=== PATIENT | female | born 1970 | race Caucasian/White ===

== ENCOUNTER → 2016-09-25 | Outpatient (CLI) | payer BC | LOC: MW.CHFP 09:57 | PROVIDERS: ATTEND Physician Assistant | DX: R30.0 Dysuria (principal); N39.0 Urinary tract infection, site not specified | CPT/HCPCS: 81001; 87086; 87088; 87186 ==

== ENCOUNTER → 2016-10-26 | Outpatient (CLI) | payer BC | LOC: MW.CHFP 15:01 | PROVIDERS: ATTEND Physician Assistant | DX: R30.0 Dysuria (principal) | CPT/HCPCS: 81001 ==

== ENCOUNTER 2017-02-27 15:07 | Emergency (ER) | payer BC ==
--- NOTE | 2017-02-27 15:29 | EDM.PDOC ---
ED HPI GENERAL MEDICAL PROBLEM - General Chief Complaint: Lower Extremity Injury/Pain Stated Complaint: RIGHT KNEE PAIN Time Seen by Provider: 02/27/17 15:29 Source of Information: Reports: Patient - History of Present Illness INITIAL COMMENTS - FREE TEXT/NARRATIVE: HISTORY AND PHYSICAL: History of present illness: []Patient has left knee pain 5 out of 10 worsen with weightbearing and climbing stairs better at rest pain is nonradiating no redness warmth or swelling noted no ballooning of the patella, full range of motion strength 5 out of 5 entire limb neurovascularly intact, patient does have medial joint line tenderness and sensation that joint is trying to walk however it does not lock in place, she does not relate any injury or trauma to the knee She denies any injury or trauma, no fever nausea vomiting chills sweats Review of systems: As per history of present illness and below otherwise all systems reviewed and negative. Past medical history: As per history of present illness and as reviewed below otherwise noncontributory. Surgical history: As per history of present illness and as reviewed below otherwise noncontributory. Social history: No reported history of drug or alcohol abuse. Family history: As per history of present illness and as reviewed below otherwise noncontributory. Physical exam: HEENT: Atraumatic, normocephalic, pupils reactive, negative for conjunctival pallor or scleral icterus, mucous membranes moist, throat clear, neck supple, nontender, trachea midline. Lungs: Clear to auscultation, breath sounds equal bilaterally, chest nontender. Heart: S1S2, regular, negative for clicks, rubs, or JVD. Abdomen: Soft, nondistended, nontender. Negative for masses or hepatosplenomegaly. Negative for costovertebral tenderness. Pelvis: Stable nontender. 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: Deferred. Rectal: Deferred. Extremities: Atraumatic, negative for cords or calf pain. Neurovascular unremarkable. Neuro: Awake, alert, oriented. Cranial nerves II through XII unremarkable. Cerebellum unremarkable. Motor and sensory unremarkable throughout. Exam nonfocal. Left knee as per history of present illness Diagnostics: []Left knee 3 views CBC CRP uric acid Therapeutics: []Rest ice ibuprofen Patient offered crutches Follow-up with orthopedist Impression: []Left knee pain Possibly anterior patellar pain syndrome however the patient does have medial joint line tenderness and locking sensation hence meniscus injury cannot be ruled out Definitive disposition and diagnosis as appropriate pending reevaluation and review of above. left knee Pain Score (Numeric/FACES): 6 - Related Data Allergies Allergy/AdvReac Type Severity Reaction Status Date / Time No Known Allergies Allergy Verified 02/27/17 15:20 Home Meds: Home Meds metFORMIN [Glucophage XR] 500 mg PO DAILY 06/11/14 [History] Albuterol [Ventolin HFA] 1 puff INH Q4H PRN 11/17/14 [History] Fluticasone/Salmeterol [Advair 100-50] 1 puff IH Q12H PRN 11/17/14 [History] Gabapentin [Neurontin] 300 mg PO BEDTIME 11/17/14 [History] lamoTRIgine [Lamotrigine] 200 mg PO DAILY 11/17/14 [History] Lisinopril/Hydrochlorothiazide [Lisinopril-Hctz 10-12.5 mg Tab] 1 tab PO DAILY 07/29/16 [History] atorvaSTATin [Lipitor] 1 tab PO DAILY 07/29/16 [History] Past Medical History HEENT History: Reports: None Cardiovascular History: Reports: Hypertension Other Cardiovascular History: REports stress test in about October of this year after being hospitalized Respiratory History: Reports: Asthma Gastrointestinal History: Reports: GERD Other Gastrointestinal History: Heartburn/GERD Other 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 History: Urinary urgency Other Musculoskeletal History: Chronic low back pain, hx: fracture Left foot Other Neuro History: Headaches, hx: Vertigo 'no problem currently' Psychiatric History: Reports: Anxiety Endocrine/Metabolic History: Reports: Diabetes, Type II Other Endocrine/Metabolic History: Hypothyroidism - Infectious Disease History Infectious Disease History: Reports: Chicken Pox - Past Surgical History HEENT Surgical History: Reports: Oral Surgery Female Surgical History: Reports: Hysterectomy, Other (See Below) Social & Family History - Family History Cardiac: Reports: CAD, High Cholesterol, ID Neurological: Reports: CVA - Tobacco Use Smoking Status *Q: Never Smoker Second Hand Smoke Exposure: No - Caffeine Use Caffeine Use: Reports: None - Alcohol Use Days Per Week of Alcohol Use: 0 - Recreational Drug Use Recreational Drug Use: No Drug Use in Last 12 Months: No Review of Systems - Review of Systems Review Of Systems: ROS reveals no pertinent complaints other than HPI. ED EXAM, GENERAL - Physical Exam Exam: See Below Course - Vital Signs Last Recorded V/S: Last Vital Signs Temp 36.4 C 02/27/17 15:20 Pulse 89 02/27/17 15:20 Resp 16 02/27/17 15:20 BP 138/71 02/27/17 15:20 Pulse Ox 95 02/27/17 15:20 - Orders/Labs/Meds Labs: Laboratory Tests 02/27/17 02/27/17 Range/Units 15:53 15:53 WBC 6.44 (4.0-11.0) K/uL RBC 4.81 (4.30-5.90) M/uL Hgb 14.2 (12.0-16.0) g/dL Hct 42.1 (36.0-46.0) % MCV 87.5 (80.0-98.0) fL MCH 29.5 (27.0-32.0) pg MCHC 33.7 (31.0-37.0) g/dL RDW Std Deviation 43.3 (28.0-62.0) fl RDW Coeff of Mamta 14 (11.0-15.0) % Plt Count 273 (150-400) K/uL MPV 9.70 (7.40-12.00) fL Neut % (Auto) 55.0 (48.0-80.0) % Lymph % (Auto) 37.4 (16.0-40.0) % Hood % (Auto) 6.2 (0.0-15.0) % Eos % (Auto) 1.1 (0.0-7.0) % Baso % (Auto) 0.3 (0.0-1.5) % Neut # (Auto) 3.5 (1.4-5.7) K/uL Lymph # (Auto) 2.4 (0.6-2.4) K/uL Hood # (Auto) 0.4 (0.0-0.8) K/uL Eos # (Auto) 0.1 (0.0-0.7) K/uL Baso # (Auto) 0.0 (0.0-0.1) K/uL Nucleated RBC % 0.0 /100WBC Nucleated RBCs # 0 K/uL Uric Acid 5.2 (2.1-6.2) mg/dL C-Reactive Protein 0.11 (0.0-0.5) mg/dL Departure - Departure Time of Disposition: 16:50 Disposition: Home, Self-Care 01 Preliminary Cause of *Q: Sepsis & Multi System Organ Failure Condition: Good Clinical Impression: Left knee pain - Discharge Information Referrals: Nitesh Ward MD [Primary Care Provider] - Forms: ED Department Discharge Additional Instructions: Rest Ice 20 minute intervals 3 times daily Ibuprofen 400 mg 3 times daily 7-10 days Follow-up with orthopedist in 2 weeks for recheck, call number below to gain appointment [facility] [address], [address] [place] [address] my orthopedic The following information is given to patients seen in the emergency department who are being discharged to home. This information is to outline your options for follow-up care. We provide all patients seen in our emergency department with a follow-up referral. The need for follow-up, as well as the timing and circumstances, are variable depending upon the specifics of your emergency department visit. If you don't have a primary care physician on staff, we will provide you with a referral. We always advise you to contact your personal physician following an emergency department visit to inform them of the circumstance of the visit and for follow-up with them and/or the need for any referrals to a consulting specialist. The emergency department will also refer you to a specialist when appropriate. This referral assures that you have the opportunity for follow-up care with a specialist. All of these measure are taken in an effort to provide you with optimal care, which includes your follow-up. Under all circumstances we always encourage you to contact your private physician who remains a resource for coordinating your care. When calling for follow-up care, please make the office aware that this follow-up is from your recent emergency room visit. If for any reason you are refused follow-up, please contact the [facility] emergency department at and asked to speak to the emergency department charge nurse.
--- NOTE | 2017-02-27 16:37 | CR ---
EXAMINATION: Left knee HISTORY: Pain COMPARISON: MRI dated 04/05/2015. TECHNIQUE: 3 views FINDINGS/IMPRESSION: There is a trace suprapatellar joint effusion. There is no fracture or acute oss eous abnormality identified. Bone mineralization and joint spaces are otherwise preserved.
[2017-02-27 17:18] VITALS: BP 121/67
== END 2017-02-27 17:16 | disposition home or self-care (01) ==
LOC: MW.ED 15:07
DX: M25.562 Pain in left knee (principal); I10 Essential (primary) hypertension; J45.909 Unspecified asthma, uncomplicated; K21.9 Gastro-esophageal reflux disease without esophagitis; E11.9 Type 2 diabetes mellitus without complications; F41.9 Anxiety disorder, unspecified; E03.9 Hypothyroidism, unspecified; Z79.84 Long term (current) use of oral hypoglycemic drugs; Z79.899 Other long term (current) drug therapy; Z90.710 Acquired absence of both cervix and uterus; Z98.818 Other dental procedure status
CPT/HCPCS: 36415; 73562-26-LT; 73562-LT; 84550; 85025; 86140; 99282; 99283

== ENCOUNTER 2017-05-24 18:33 | Emergency (ER) | payer BC ==
--- NOTE | 2017-05-24 19:20 | EDM.PDOC ---
ED HPI GENERAL MEDICAL PROBLEM - General Chief Complaint: Upper Extremity Injury/Pain Stated Complaint: PT HURT LT SHOULDER Time Seen by Provider: 05/24/17 19:17 - History of Present Illness INITIAL COMMENTS - FREE TEXT/NARRATIVE: HISTORY AND PHYSICAL: History of present illness: Patient's 47-year-old female presents with left shoulder pain from fall 2 weeks prior she denies other trauma or concern Review of systems: As per history of present illness and below otherwise all systems reviewed and negative. Past medical history: As per history of present illness and as reviewed below otherwise noncontributory. Surgical history: As per history of present illness and as reviewed below otherwise noncontributory. Social history: No reported history of drug or alcohol abuse. Family history: As per history of present illness and as reviewed below otherwise noncontributory. Physical exam: HEENT: Atraumatic, normocephalic, pupils reactive, negative for conjunctival pallor or scleral icterus, mucous membranes moist, throat clear, neck supple, nontender, trachea midline. Lungs: Clear to auscultation, breath sounds equal bilaterally, chest nontender. Heart: S1S2, regular, negative for clicks, rubs, or JVD. Abdomen: Soft, nondistended, nontender. Negative for masses or hepatosplenomegaly. Negative for costovertebral tenderness. Pelvis: Stable nontender. 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: Deferred. Rectal: Deferred. Extremities: Limited range of motion to her left shoulder secondary to pain no gross deformity no crepitation or point tenderness CMS neurovascular exams unremarkable. Neuro: Awake, alert, oriented. Cranial nerves II through XII unremarkable. Cerebellum unremarkable. Motor and sensory unremarkable throughout. Exam nonfocal. Diagnostics: X-ray left shoulder Therapeutics: Left shoulder sling Impression: #1 left shoulder injury Definitive disposition and diagnosis as appropriate pending reevaluation and review of above. Left Shoulder Pain Score (Numeric/FACES): 8 - Related Data Allergies Allergy/AdvReac Type Severity Reaction Status Date / Time No Known Allergies Allergy Verified 05/24/17 19:09 Home Meds: Home Meds metFORMIN [Glucophage XR] 3 tab PO DAILY 06/11/14 [History] Gabapentin [Neurontin] 300 mg PO BID 11/17/14 [History] lamoTRIgine [Lamotrigine] 200 mg PO DAILY 11/17/14 [History] Lisinopril/Hydrochlorothiazide [Lisinopril-Hctz 10-12.5 mg Tab] 1 tab PO DAILY 07/29/16 [History] Albuterol Sulfate [Proair Hfa] 1 - 2 puff INH ASDIRECTED PRN 05/24/17 [History] Aspirin [[place] Aspirin] 81 mg PO DAILY 05/24/17 [History] Omeprazole 20 mg PO DAILY 05/24/17 [History] Venlafaxine HCl [Venlafaxine HCl ER] 75 mg PO DAILY 05/24/17 [History] Past Medical History HEENT History: Reports: None Cardiovascular History: Reports: Hypertension Other Cardiovascular History: REports stress test in about October of this year after being hospitalized Respiratory History: Reports: Asthma Gastrointestinal History: Reports: GERD Other Gastrointestinal History: Heartburn/GERD Other 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 History: Urinary urgency Other Musculoskeletal History: Chronic low back pain, hx: fracture Left foot Other Neuro History: Headaches, hx: Vertigo 'no problem currently' Psychiatric History: Reports: Anxiety Endocrine/Metabolic History: Reports: Diabetes, Type II Other Endocrine/Metabolic History: Hypothyroidism - Infectious Disease History Infectious Disease History: Reports: Chicken Pox - Past Surgical History Head Surgeries/Procedures: Reports: None HEENT Surgical History: Reports: Oral Surgery Female Surgical History: Reports: Hysterectomy, Other (See Below) Social & Family History - Family History Family Medical History: Noncontributory Cardiac: Reports: CAD, High Cholesterol, [place] Neurological: Reports: CVA - Tobacco Use Smoking Status *Q: Never Smoker Second Hand Smoke Exposure: No - Caffeine Use Caffeine Use: Reports: Soda - Alcohol Use Days Per Week of Alcohol Use: 0 - Recreational Drug Use Recreational Drug Use: No Drug Use in Last 12 Months: No Review of Systems - Review of Systems Review Of Systems: ROS reveals no pertinent complaints other than HPI. ED EXAM, GENERAL - Physical Exam Exam: See Below (See dictated) Course - Vital Signs Last Recorded V/S: Last Vital Signs Temp 36.4 C 05/24/17 19:08 Pulse 86 05/24/17 19:08 Resp 18 05/24/17 19:08 BP 129/75 05/24/17 19:08 Pulse Ox 95 05/24/17 19:08 - Orders/Labs/Meds Orders: Active Orders 24 hr Category Date Time Status Shoulder Comp Lt [CR] Stat Exams 05/24/17 19:18 Ordered Departure - Departure Time of Disposition: 19:20 Disposition: Home, Self-Care 01 Condition: Good Clinical Impression: Shoulder injury - Discharge Information Referrals: PCP,None [Primary Care Provider] - Additional Instructions: The following information is given to patients seen in the emergency department who are being discharged to home. This information is to outline your options for follow-up care. We provide all patients seen in our emergency department with a follow-up referral. The need for follow-up, as well as the timing and circumstances, are variable depending upon the specifics of your emergency department visit. If you don't have a primary care physician on staff, we will provide you with a referral. We always advise you to contact your personal physician following an emergency department visit to inform them of the circumstance of the visit and for follow-up with them and/or the need for any referrals to a consulting specialist. The emergency department will also refer you to a specialist when appropriate. This referral assures that you have the opportunity for followup care with a specialist. All of these measure are taken in an effort to provide you with optimal care, which includes your followup. Under all circumstances we always encourage you to contact your private physician who remains a resource for coordinating your care. When calling for followup care, please make the office aware that this follow-up is from your recent emergency room visit. If for any reason you are refused follow-up, please contact the [facility] emergency department at and asked to speak to the emergency department charge nurse. [facility] - Orthopedic Clinic [address], [address] [place] [address] Sling as directed Ultram as prescribed called schedule routine appointment with primary medical doctor in orthopedic clinic above as needed as discussed - My Orders Last 24 Hours: My Active Orders 05/24/17 19:18 Shoulder Comp Lt [CR] Stat - Assessment/Plan Last 24 Hours: My Active Orders 05/24/17 19:18 Shoulder Comp Lt [CR] Stat
[2017-05-24 23:38] VITALS: BP 131/73
--- NOTE | 2017-05-26 06:16 | CR ---
EXAM DATE: 05/24/17 PATIENT'S AGE: 47 Patient: DERIK JAIME Facility: [place], [place] Site . Site : 1970 Study: XRay Shoulder Left [id number]/[id number] 7:36:30 PM Ordering Physician: Annalisa Banuelos Final Report: INDICATION: Shoulder pain, fell 2 weeks ago TECHNIQUE: Shoulder radiograph 3 views left COMPARISON: 05/13/2017 FINDINGS: Bones: Alignment is normal. No acute fractures or aggressive bone lesions identified. Joint spaces: The glenohumeral joint is unremarkable in appearance. The acromioclavicular joint is unremarkable. No radiographic evidence of a shoulder effusion is seen. Soft tissues: The visualized hemithorax is unremarkable. No radiopaque foreign bodies are seen. IMPRESSION: 1. No acute osseous injuries are noted. Dictated by: Maulik Peraza MD @ 05/24/2017 19:39:24 (Electronic Signature) Report Signed by Proxy. BENITO
== END 2017-05-24 20:06 | disposition home or self-care (01) ==
LOC: MW.ED 18:33
DX: S49.92XA Unspecified injury of left shoulder and upper arm, initial encounter (principal); I10 Essential (primary) hypertension; J45.909 Unspecified asthma, uncomplicated; K21.9 Gastro-esophageal reflux disease without esophagitis; E11.9 Type 2 diabetes mellitus without complications; E03.9 Hypothyroidism, unspecified; Z79.84 Long term (current) use of oral hypoglycemic drugs; Z79.82 Long term (current) use of aspirin; Z79.899 Other long term (current) drug therapy; W19.XXXA Unspecified fall, initial encounter
CPT/HCPCS: 73030; 99283; A4566

== ENCOUNTER 2017-05-29 09:04 | Day surgery (SDC) | payer BC ==
[~2017-05-29 09:04] MED LIST: Acetaminophen/HYDROcodone 325-5 MG Tab PO PRN; Lactated Ringers 1,000 ML IV SCH; Lidocaine 1% 20 ML MDV ONE; Lidocaine 2% 5 ML SDV ONE; Midazolam 1 MG/ML 2 ML SDV ONE; Ondansetron 4 MG/2 ML SDV ONE; Propofol 200 MG/20 ML SDV ONE; ceFAZolin 2 GM in Premix Bag 1 BAG IV SCH; fentaNYL 250 MCG/5 ML SDV ONE
--- NOTE | 2017-05-29 10:01 | PCM.PREANE ---
Preanesthetic Assessment - Anesthesia/Transfusion/Family Hx Anesthesia History: Prior Anesthesia Without Reaction Other Type of Anesthesia Reaction Comment: was told she had low SaO2 after surgery Family History of Anesthesia Reaction: No Transfusion History: No Prior Transfusion(s) - Review of Systems General: No Symptoms Pulmonary: No Symptoms Cardiovascular: No Symptoms Gastrointestinal: No Symptoms Neurological: No Symptoms Other: Reports: Sinus Problem - Physical Assessment NPO Status Date: 05/28/17 NPO Status Time: 21:00 O2 Sat by Pulse Oximetry: 96 Respiratory Rate: 14 Vital Signs: Last Vital Signs Temp 36.9 C 05/29/17 09:30 Pulse 86 05/29/17 09:30 Resp 14 05/29/17 09:30 BP 131/73 05/29/17 09:30 Pulse Ox 96 05/29/17 09:30 Height: 1.75 m Weight: 112.945 kg ASA Class: 2 Mental Status: Alert & Oriented x3 Airway Class: Mallampati = 2 Dentition: Reports: Normal Dentition Lungs: Clear to Auscultation, Normal Respiratory Effort - Allergies Allergies/Adverse Reactions: Allergies Allergy/AdvReac Type Severity Reaction Status Date / Time No Known Allergies Allergy Verified 05/24/17 19:09 - Anesthesia Plan Pre-Op Medication Ordered: None - Acknowledgements Anesthesia Type Planned: General Anesthesia Pt an Appropriate Candidate for the Planned Anesthesia: Yes Alternatives and Risks of Anesthesia Discussed w Pt/Guardian: Yes Pt/Guardian Understands and Agrees with Anesthesia Plan: Yes Additional Comments: PMH: MO, anx/dep, Asthma, DM2, GERD, HTN (on clonadine), thyroid replacement. PreAnesthesia Questionnaire HEENT History: Reports: None Other HEENT History: wears glasses Cardiovascular History: Reports: Hypertension Other Cardiovascular History: REports stress test in about October of this year after being hospitalized Respiratory History: Reports: Asthma Gastrointestinal History: Reports: GERD Other Gastrointestinal History: uses OTC treatment Other 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 History: Urinary urgency Musculoskeletal History: Reports: Back Pain, Chronic Other Musculoskeletal History: Chronic low back pain, hx: fracture Left foot Neurological History: Reports: Concussion, Vertigo Other Neuro History: Headaches, hx: Vertigo 'no problem currently' Psychiatric History: Reports: Anxiety, Depression Endocrine/Metabolic History: Reports: Diabetes, Type II, Obesity/BMI 30+ Other Endocrine/Metabolic History: Hypothyroidism - Infectious Disease History Infectious Disease History: Reports: Chicken Pox - Past Surgical History HEENT Surgical History: Reports: None Female Surgical History: Reports: Hysterectomy, Salpingo-Oophorectomy, Tubal Ligation Other Female Surgeries/Procedures: hx of bladder surgery - SUBSTANCE USE Smoking Status *Q: Never Smoker Second Hand Smoke Exposure: No Days Per Week of Alcohol Use: 0 Recreational Drug Use History: No - HOME MEDS Home Medications: Home Meds metFORMIN [Glucophage XR] 3 tab PO DAILY 06/11/14 [History] Gabapentin [Neurontin] 300 mg PO BID 11/17/14 [History] lamoTRIgine [Lamotrigine] 200 mg PO DAILY 11/17/14 [History] Lisinopril/Hydrochlorothiazide [Lisinopril-Hctz 10-12.5 mg Tab] 1 tab PO DAILY 07/29/16 [History] Albuterol Sulfate [Proair Hfa] 1 - 2 puff INH ASDIRECTED PRN 05/24/17 [History] Aspirin [[place] Aspirin] 81 mg PO DAILY 05/24/17 [History] Venlafaxine HCl [Venlafaxine HCl ER] 75 mg PO DAILY 05/24/17 [History] - CURRENT (IN HOUSE) MEDS Current Meds: Current Medications Hydrocodone Bitart/Acetaminophen ([place] 325-5 Mg) 1 - 2 tab PO Q4H PRN PRN Reason: Pain Cefazolin Sodium/Dextrose 2 gm (/ Premix) 50 mls @ 100 mls/hr IV ONCALL MAYURI Lactated Ringer's (Ringers, Lactated) 1,000 mls @ 100 mls/hr IV ASDIRECTED MAYURI Discontinued Medications Fentanyl (Sublimaze) Confirm Administered Dose 250 mcg .ROUTE .STK-MED ONE Stop: 05/29/17 08:41 Lidocaine (Xylocaine-Mpf 2%) Confirm Administered Dose 5 ml .ROUTE .STK-MED ONE Stop: 05/29/17 08:41 Lidocaine HCl (Xylocaine 1%) Confirm Administered Dose 20 ml .ROUTE .STK-MED ONE Stop: 05/29/17 07:52 Midazolam HCl (Versed 1 Mg/Ml) Confirm Administered Dose 2 mg .ROUTE .STK-MED ONE Stop: 05/29/17 08:42 Ondansetron HCl (Zofran) Confirm Administered Dose 4 mg .ROUTE .STK-MED ONE Stop: 05/29/17 08:41 Propofol (Diprivan 20 Ml) Confirm Administered Dose 200 mg .ROUTE .STK-MED ONE Stop: 05/29/17 08:41
--- NOTE | 2017-05-29 11:40 | PCM.OPNOTE ---
- General Post-Op/Procedure Note Date of Surgery/Procedure: 05/29/17 Operative Procedure(s): Left knee scope with PLM Post-Op Diagnosis: left knee lateral meniscus tear Anesthesia Technique: General LMA Primary Surgeon: Patricia Dill Flour Mixer: Blanca Shabazz in mLs: 5 Condition: Good Free Text/Narrative:: tt=12 min #[id number]
[2017-05-29] MEDS ORDERED: fentaNYL 100 MCG/2 ML SDV ONE (12:03)
[2017-05-29] MEDS: fentaNYL 100 MCG/2 ML SDV IVPUSH PRN ×2 (12:05→12:12)
--- NOTE | 2017-05-29 12:58 | PCM48HPAN ---
Post Anesthesia Note - EVALUATION WITHIN 48HRS OF ANESTHETIC Vital Signs in Normal Range: Yes Patient Participated in Evaluation: Yes Respiratory Function Stable: Yes Airway Patent: Yes Cardiovascular Function Stable: Yes Hydration Status Stable: Yes Pain Control Satisfactory: Yes Nausea and Vomiting Control Satisfactory: Yes Mental Status Recovered: Yes
--- NOTE | 2017-05-29 12:58 | PCM.POSTAN ---
POST ANESTHESIA ASSESSMENT - MENTAL STATUS Mental Status: Alert, Oriented - RESPIRATORY Respiratory Status: Respiratory Rate WNL, Airway Patent, O2 Saturation Stable - CARDIOVASCULAR CV Status: Pulse Rate WNL, Blood Pressure Stable - GASTROINTESTINAL GI Status: No Symptoms - POST OP HYDRATION Hydration Status: Adequate & Stable
[2017-05-29 14:27] VITALS: BP 126/78
--- NOTE | 2017-05-29 17:14 | OR ---
SURGEON: Patricia Dill MD DATE OF PROCEDURE: 05/29/2017 PREOPERATIVE DIAGNOSIS: Left knee lateral meniscus tear. POSTOPERATIVE DIAGNOSIS: Left knee lateral meniscus tear. PROCEDURE: Left knee arthroscopy with partial lateral meniscectomy. RETAIL AREA MANAGER: Blanca Shabazz RN. ANESTHESIA: General. ESTIMATED BLOOD LOSS: 5 mL. TOURNIQUET TIME: 12 minutes. COMPLICATIONS: None. DVT PROPHYLAXIS: Not indicated. IMPLANTS USED: None. BRIEF HISTORY: Milla is a 47-year-old female, who has had complaint of progressive left knee pain. She did have an MRI, which showed a tear of the lateral meniscus. Due to her lack of response to conservative treatment, I did recommend surgical intervention. The risks and goals of procedure were discussed with the patient and were documented preoperatively. She agreed to proceed. DESCRIPTION OF PROCEDURE: The patient was properly identified and brought to the operating room. She was transferred from the OR cart and placed on the operating room table in supine position. General anesthesia was administered. After adequate anesthesia was obtained, a well-padded tourniquet was applied to the left lower extremity. The left lower extremity was then prepped in standard fashion using ChloraPrep solution. It was then sterilely draped. A time-out was performed to ensure correct site and procedure. Preoperative antibiotics were given. The surgical site had been marked preoperatively. An Esmarch was used to exsanguinate the left lower extremity and the tourniquet was inflated to 250 mmHg. A lateral portal arthrotomy was established. Blunt trocar and cannula were introduced into the suprapatellar pouch. Camera, inflow, and outflow were assembled. No significant synovitis was noted. The patellofemoral joint was visualized. 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 The patella appeared to track centrally. I then extended down the lateral and medial gutter. No loose bodies were identified. I then entered the medial compartment. A medial portal arthrotomy was established. A blunt probe was inserted. The meniscus was extensively probed. No tearing was noted. The joint surfaces showed minor softening consistent with grade 1 chondromalacia only. I then entered the notch. Both the ACL and PCL were visualized and probed and found to be intact. I finally entered the lateral compartment. She had extensive degenerative fraying along the anterior horn of the lateral meniscus. A radial tear was noted along the lateral aspect of the lateral meniscus as well. Using a combination of biters and shaver, the tears were resected back to a stable remnant. The meniscus was again probed and found to be stable. There was an area of grade 2 chondromalacia with a loose cartilage flap measuring approximately 7 mm x 5 mm along the lateral femoral condyle. This was resected with the shaver. Instruments were then removed from the knee. The portal sites were closed with 3-0 nylon. Lidocaine 1% was injected along the portal tract. Xeroform gauze was placed over the wound and a bulky dressing was applied. The tourniquet was then deflated. She was awakened from her anesthetic and transferred back to the operating room cart. She was brought to recovery room in stable condition. All needle and sponge counts were correct. MARGARET / MELVINA /[id number] BENITO
== END 2017-05-29 13:45 | disposition home or self-care (01) ==
LOC: MW.SDS 09:04
PROVIDERS: ATTEND Orthopaedic Surgery
DX: S83.282A Other tear of lateral meniscus, current injury, left knee, initial encounter (principal); M22.42 Chondromalacia patellae, left knee; I10 Essential (primary) hypertension; J45.909 Unspecified asthma, uncomplicated; K21.9 Gastro-esophageal reflux disease without esophagitis; G89.29 Other chronic pain; M54.5 Low back pain; E03.9 Hypothyroidism, unspecified; E11.9 Type 2 diabetes mellitus without complications; E78.00 Pure hypercholesterolemia, unspecified; E66.01 Morbid (severe) obesity due to excess calories; Z68.36 Body mass index [BMI] 36.0-36.9, adult; Z79.82 Long term (current) use of aspirin; Z79.84 Long term (current) use of oral hypoglycemic drugs; Z79.51 Long term (current) use of inhaled steroids; Z79.899 Other long term (current) drug therapy; Z90.722 Acquired absence of ovaries, bilateral; Z90.710 Acquired absence of both cervix and uterus; Z98.51 Tubal ligation status; Z98.890 Other specified postprocedural states
CPT/HCPCS: 29881; A9270; J2250; J2405; J3010; 01400; 82962; 88304; J2704

== ENCOUNTER 2017-09-18 18:33 | Emergency (ER) | payer BC ==
--- NOTE | 2017-09-18 19:08 | EDM.PDOC ---
ED HPI GENERAL MEDICAL PROBLEM - General Chief Complaint: Lower Extremity Injury/Pain Stated Complaint: PT HAS PAIN IN LT KNEE AND LT FOOT PAIN Time Seen by Provider: 09/18/17 18:47 Source of Information: Reports: Patient History Limitations: Reports: No Limitations - History of Present Illness INITIAL COMMENTS - FREE TEXT/NARRATIVE: HISTORY AND PHYSICAL: History of present illness: Patient is a 47-year-old female who presents to the emergency room with complaints of left knee and foot pain. She states she had an left arthroscopic knee surgery in May 2017 Dr. Dill. She states since that time she has had pain to the left knee and foot with intermittent swelling. She admits that she has not had any follow-up with the orthopedic provider since her surgery. She denies any injury, trauma or falls of the affected extremity. He has been using naproxen and Tylenol [id number] for pain management. She states this "works sometimes but usually doesn't". Review of systems: As per history of present illness and below otherwise all systems reviewed and negative. Past medical history: As per history of present illness and as reviewed below otherwise noncontributory. Surgical history: As per history of present illness and as reviewed below otherwise noncontributory. Social history: No reported history of drug or alcohol abuse. Family history: As per history of present illness and as reviewed below otherwise noncontributory. Physical exam: Gen.: Well-developed and well-nourished 47-year-old female. Alert and oriented. Nontoxic appearing and in no acute distress. HEENT: Atraumatic, normocephalic, pupils reactive, negative for conjunctival pallor or scleral icterus, mucous membranes moist, throat clear, neck supple, nontender, trachea midline. Lungs: Clear to auscultation, breath sounds equal bilaterally. Heart: S1S2, regular rate and rhythm Abdomen: Soft, nondistended, nontender. Negative for masses. Negative for costovertebral tenderness. Pelvis: Stable nontender. 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: Deferred. Rectal: Deferred. Extremities: Atraumatic, moves all extremities per self without difficulty or deficits. +1 edema noted to bilateral LE. Strong pedal pulses bilaterally. Cap Refill less than 3 seconds. Surgical scar noted x 2 to patella, left. She is negative for cords or calf pain. Neurovascular unremarkable. Skin: Intact, warm, dry. No bruising or erythema noted. No localized area of tenderness. Neuro: Awake, alert, oriented. Cranial nerves II through XII unremarkable. Cerebellum unremarkable. Motor and sensory unremarkable throughout. Exam nonfocal. X-ray shows no acute findings such as fracture or dislocation. Supportive care measures were reviewed with the patient. We'll give her an Yan wrap. Discussed follow-up with orthopedic provider. She voices understanding and is agreeable to plan of care. She denies any questions at this time Diagnostics: X-ray left foot, x-ray left knee Therapeutics: Ice Impression: Knee Pain, left Plan: 1. Yan wrap to left knee for comfort. Rest, ice, elevate the lower extremity. You may use the Tramadol that was prescribed for nighttime use. Will cause drowsiness, so do not take while driving or needing to be functioning at work. Otherwise, continue with your Ibuprofen/Naproxen and Tylenol. 2. You may want to get AVIVA hose (compression socks) for your lower extremities to help with swelling. Limit your sodium intake. 3. Please follow up with orthopedics within the next couple weeks. Return to the ED as needed and as discussed. Definitive disposition and diagnosis as appropriate pending reevaluation and review of above. Duration: Chronic Left Feet Pain Score (Numeric/FACES): 8 - Related Data Allergies Allergy/AdvReac Type Severity Reaction Status Date / Time No Known Allergies Allergy Verified 09/18/17 18:52 Home Meds: Home Meds metFORMIN [Glucophage XR] 500 mg PO DAILY 06/11/14 [History] Gabapentin [Neurontin] 300 mg PO BID 11/17/14 [History] lamoTRIgine [Lamotrigine] 200 mg PO DAILY 11/17/14 [History] Lisinopril/Hydrochlorothiazide [Lisinopril-Hctz 10-12.5 mg Tab] 1 tab PO DAILY 07/29/16 [History] Albuterol Sulfate [Proair Hfa] 1 - 2 puff INH ASDIRECTED PRN 05/24/17 [History] Aspirin [Gates Aspirin] 81 mg PO DAILY 05/24/17 [History] Venlafaxine HCl [Venlafaxine HCl ER] 75 mg PO DAILY 05/24/17 [History] Past Medical History HEENT History: Reports: None Other HEENT History: wears glasses Cardiovascular History: Reports: Hypertension Other Cardiovascular History: REports stress test in about October of this year after being hospitalized Respiratory History: Reports: Asthma Gastrointestinal History: Reports: GERD Other Gastrointestinal History: uses OTC treatment Other 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 History: Urinary urgency Musculoskeletal History: Reports: Back Pain, Chronic Other Musculoskeletal History: Chronic low back pain, hx: fracture Left foot Neurological History: Reports: Concussion, Vertigo Other Neuro History: Headaches, hx: Vertigo 'no problem currently' Psychiatric History: Reports: Anxiety, Depression Endocrine/Metabolic History: Reports: Diabetes, Type II, Obesity/BMI 30+ Other Endocrine/Metabolic History: Hypothyroidism - Infectious Disease History Infectious Disease History: Reports: Chicken Pox - Past Surgical History Head Surgeries/Procedures: Reports: None HEENT Surgical History: Reports: None Female Surgical History: Reports: Hysterectomy, Salpingo-Oophorectomy, Tubal Ligation Other Female Surgeries/Procedures: hx of bladder surgery Social & Family History - Family History Family Medical History: Noncontributory Cardiac: Reports: CAD, High Cholesterol, [place] Neurological: Reports: CVA - Tobacco Use Smoking Status *Q: Never Smoker Second Hand Smoke Exposure: No - Caffeine Use Caffeine Use: Reports: Soda - Alcohol Use Days Per Week of Alcohol Use: 0 - Recreational Drug Use Recreational Drug Use: No Drug Use in Last 12 Months: No Review of Systems - Review of Systems Review Of Systems: ROS reveals no pertinent complaints other than HPI. ED EXAM, GENERAL - Physical Exam Exam: See Below (See dictation) Course - Vital Signs Last Recorded V/S: Last Vital Signs Temp 97.1 F 09/18/17 18:50 Pulse 82 09/18/17 18:50 Resp 18 09/18/17 18:50 BP 152/93 H 09/18/17 18:50 Pulse Ox 98 09/18/17 18:50 - Orders/Labs/Meds Orders: Active Orders 24 hr Category Date Time Status Foot 2V Lt [CR] Stat Exams 09/18/17 19:19 Taken Knee 3V Lt [CR] Stat Exams 09/18/17 19:19 Taken DME for Discharge [COMM] Stat Oth 09/18/17 19:45 Ordered Departure - Departure Time of Disposition: 20:24 Disposition: Home, Self-Care 01 Clinical Impression: Knee pain, left Qualifiers: Chronicity: chronic Qualified Code(s): M25.562 - Pain in left knee - Discharge Information Instructions: Knee Pain, Adult Referrals: PCP,None [Primary Care Provider] - Forms: ED Department Discharge Additional Instructions: General dischargeMy general discharge The following information is given to patients seen in the emergency department who are being discharged to home. This information is to outline your options for follow-up care. We provide all patients seen in our emergency department with a follow-up referral. The need for follow-up, as well as the timing and circumstances, are variable depending upon the specifics of your emergency department visit. If you don't have a primary care physician on staff, we will provide you with a referral. We always advise you to contact your personal physician following an emergency department visit to inform them of the circumstance of the visit and for follow-up with them and/or the need for any referrals to a consulting specialist. The emergency department will also refer you to a specialist when appropriate. This referral assures that you have the opportunity for follow-up care with a specialist. All of these measure are taken in an effort to provide you with optimal care, which includes your follow-up. Under all circumstances we always encourage you to contact your private physician who remains a resource for coordinating your care. When calling for follow-up care, please make the office aware that this follow-up is from your recent emergency room visit. If for any reason you are refused follow-up, please contact the [facility] Emergency Department at and asked to speak to the emergency department charge nurse. [facility] Professional [address], [address] [place] [address] 1. Yan wrap to left knee for comfort. Rest, ice, elevate the lower extremity. You may use the Tramadol that was prescribed for nighttime use. Will cause drowsiness, so do not take while driving or needing to be functioning at work. Otherwise, continue with your Ibuprofen/Naproxen and Tylenol. 2. You may want to get AVIVA hose (compression socks) for your lower extremities to help with swelling. Limit your sodium intake. 3. Please follow up with orthopedics within the next couple weeks. Return to the ED as needed and as discussed. - My Orders Last 24 Hours: My Active Orders 09/18/17 19:19 Foot 2V Lt [CR] Stat Knee 3V Lt [CR] Stat 09/18/17 19:45 DME for Discharge [COMM] Stat - Assessment/Plan Last 24 Hours: My Active Orders 09/18/17 19:19 Foot 2V Lt [CR] Stat Knee 3V Lt [CR] Stat 09/18/17 19:45 DME for Discharge [COMM] Stat
[2017-09-19 04:42] VITALS: BP 140/86
--- NOTE | 2017-09-19 10:49 | CR ---
EXAM DATE: 09/18/17 PATIENT'S AGE: 47 Patient: DERIK JAIME Facility: [place], [place] Site . Site : 1970 Study: XRay Extremity Left Foot [id number]/21/2018 7:51:39 PM Ordering Physician: Doctor Zimmerman Final Report: INDICATION: Pain. TECHNIQUE: Two views. IMPRESSION: Mild hallux valgus. No fracture or bone lesion. Os calcis spur. Subtle mineralization in the tendon and mild calcaneal spurring Achilles insertion. No Ella`s deformity. Dictated by Marlo Higgins MD @ Sep 18 2017 8:17PM (Electronic Signature) Report Signed by Proxy. BENITO
--- NOTE | 2017-09-19 10:50 | CR ---
EXAM DATE: 09/18/17 PATIENT'S AGE: 47 Patient: DERIK JAIME Facility: [place], [place] Site . Site : 1970 Study: XRay Knee Left [id number]/21/2018 7:53:14 PM Ordering Physician: Doctor Zimmerman Final Report: INDICATION: Knee pain TECHNIQUE: Knee radiographs 3 views COMPARISON: None FINDINGS: Bones: Alignment is normal. No acute fractures or aggressive osseous lesions seen. Joint spaces: No significant joint effusion is seen. Mild narrowing of the medial, lateral, and patellofemoral compartments. Soft tissues: Unremarkable. No radiopaque foreign bodies are noted. IMPRESSION: 1. No acute osseous injuries are identified. 2. Mild degenerative changes of the left knee. Dictated by Irvin Mcconnell MD @ 09/18/2017 8:22:37 PM Dictated by: Irvin Mcconnell MD @ 09/18/2017 20:22:42 (Electronic Signature) Report Signed by Proxy. [facility]ITAL[facility]etta
== END 2017-09-18 20:30 | disposition home or self-care (01) ==
LOC: MW.ED 18:33
DX: M25.562 Pain in left knee (principal); I10 Essential (primary) hypertension; J45.909 Unspecified asthma, uncomplicated; E11.9 Type 2 diabetes mellitus without complications; Z79.84 Long term (current) use of oral hypoglycemic drugs; Z79.82 Long term (current) use of aspirin; Z79.899 Other long term (current) drug therapy
CPT/HCPCS: 73562-26-LT; 73562-LT; 73620-26-LT; 73620-LT; 99283

== ENCOUNTER 2018-09-24 20:01 | Emergency (ER) | payer BC, OTHER ==
[2018-09-24] MEDS ORDERED: Sodium Chloride 0.9% 10 ML Syringe FLUSH PRN (20:11)
[2018-09-24] MEDS ORDERED: Sodium Chloride 0.9% 2.5 ML Syringe FLUSH PRN (20:11)
--- NOTE | 2018-09-24 20:16 | EDM.PDOC ---
ED HPI GENERAL MEDICAL PROBLEM - General Chief Complaint: Chest Pain Stated Complaint: PT HAS CHEST PAINS Time Seen by Provider: 09/24/18 20:11 Source of Information: Reports: Patient History Limitations: Reports: No Limitations - History of Present Illness INITIAL COMMENTS - FREE TEXT/NARRATIVE: HISTORY AND PHYSICAL: History of present illness: Patient is a 48-year-old female past medical history of hypertension and asthma here with complaint of chest pain that began this afternoon. She feels like her heart is racing and feels tightness her chest. He has been feeling short of breath and feels like this is related to her asthma. She has not been using her inhaler. She denies cough, fevers, chills, nausea, vomiting, abdominal pain, urinary or bowel symptoms. She reports she does have a slight headache but denies any visual disturbances. Review of systems: As per history of present illness and below otherwise all systems reviewed and negative. Past medical history: As per history of present illness and as reviewed below otherwise noncontributory. Surgical history: As per history of present illness and as reviewed below otherwise noncontributory. Social history: No reported history of drug or alcohol abuse. Family history: As per history of present illness and as reviewed below otherwise noncontributory. Physical exam: General: Patient sitting comfortably in no acute distress and nontoxic appearing HEENT: Atraumatic, normocephalic, pupils reactive, negative for conjunctival pallor or scleral icterus, mucous membranes moist, throat clear, neck supple, nontender, trachea midline. No meningeal signs. Lungs: Lung sounds are diminished bilaterally, chest nontender. Heart: S1S2, regular, negative for clicks, rubs, or overt murmur. Abdomen: Soft, nondistended, nontender. Negative for masses or hepatosplenomegaly. Negative for costovertebral tenderness. No rigidity, rebound , guarding. Pelvis: Stable nontender. 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: Deferred. Rectal: Deferred. Extremities: Atraumatic, negative for cords or calf pain. Neurovascular unremarkable. Neuro: Awake, alert, oriented. Cranial nerves II through XII unremarkable. Cerebellum unremarkable. Motor and sensory unremarkable throughout. Exam nonfocal. Notes: Patient reports she feels much better with DuoNeb. She was offered admission for chest pain to follow troponins and r/o ACS. Patient declined and understands risk of this. Diagnostics: CBC, CMP, troponin, PT/INR EKG, chest x-ray Therapeutics: DuoNeb Prescriptions: Medrol dose luis felipe Impression: Chest pain, asthma Plan: 1. Use inhalers and take medication as instructed 2. Follow up with primary care provider 3. Return to ED as needed as discussed Definitive disposition and diagnosis as appropriate pending reevaluation and review of above. Chest Pain Score (Numeric/FACES): 4 - Related Data Allergies Allergy/AdvReac Type Severity Reaction Status Date / Time No Known Allergies Allergy Verified 09/24/18 20:16 Home Meds: Home Meds Gabapentin [Neurontin] 300 mg PO BID 11/17/14 [History] lamoTRIgine [Lamotrigine] 200 mg PO DAILY 11/17/14 [History] Lisinopril/Hydrochlorothiazide [Lisinopril-Hctz 10-12.5 mg Tab] 1 tab PO DAILY 07/29/16 [History] Albuterol Sulfate [Proair Hfa] 1 - 2 puff INH ASDIRECTED PRN 05/24/17 [History] Venlafaxine HCl [Venlafaxine HCl ER] 150 mg PO DAILY 05/24/17 [History] methylPREDNISolone [Medrol] 4 mg PO ASDIRECTED #1 tab.ds.pk 09/24/18 [Rx] Past Medical History HEENT History: Reports: None Other HEENT History: wears glasses Cardiovascular History: Reports: Hypertension Other Cardiovascular History: REports stress test in about October of this year after being hospitalized Respiratory History: Reports: Asthma Gastrointestinal History: Reports: GERD Other Gastrointestinal History: uses OTC treatment Other 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 History: 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: Musculoskeletal History: Reports: Back Pain, Chronic Other Musculoskeletal History: Chronic low back pain, hx: fracture Left foot Neurological History: Reports: Concussion, Vertigo Other Neuro History: Headaches, hx: Vertigo 'no problem currently' Psychiatric History: Reports: Anxiety, Depression Endocrine/Metabolic History: Reports: Diabetes, Type II, Obesity/BMI 30+ Other Endocrine/Metabolic History: Hypothyroidism - Infectious Disease History Infectious Disease History: Reports: Chicken Pox - Past Surgical History Head Surgeries/Procedures: Reports: None HEENT Surgical History: Reports: None Female Surgical History: Reports: Hysterectomy, Salpingo-Oophorectomy, Tubal Ligation Other Female Surgeries/Procedures: hx of bladder surgery Social & Family History - Family History Family Medical History: Noncontributory Cardiac: Reports: CAD, High Cholesterol, [place] Neurological: Reports: CVA - Caffeine Use Caffeine Use: Reports: Soda ED ROS GENERAL - Review of Systems Review Of Systems: ROS reveals no pertinent complaints other than HPI. ED EXAM, GENERAL - Physical Exam Exam: See Below (See dictation) Course - Vital Signs Last Recorded V/S: Last Vital Signs Temp 97.6 F 09/24/18 20:16 Pulse 103 H 09/24/18 20:16 Resp 18 09/24/18 20:16 BP 182/98 H 09/24/18 20:16 Pulse Ox 98 09/24/18 20:35 - Orders/Labs/Meds Orders: Active Orders 24 hr Category Date Time Status Cardiac Monitoring [RC] . DIRECTED Care 09/24/18 20:11 Active EKG Documentation Completion [RC] STAT Care 09/24/18 20:12 Active Sodium Chloride 0.9% [Saline Flush] Med 09/24/18 20:11 Active 10 ml FLUSH ASDIRECTED PRN Sodium Chloride 0.9% [Saline Flush] Med 09/24/18 20:11 Active 2.5 ml FLUSH ASDIRECTED PRN Saline Lock Insert [OM.PC] Stat Oth 09/24/18 20:11 Ordered Medication Orders Sodium Chloride (Saline Flush) 10 ml FLUSH ASDIRECTED PRN PRN Reason: Keep Vein Open Sodium Chloride (Saline Flush) 2.5 ml FLUSH ASDIRECTED PRN PRN Reason: Keep Vein Open Labs: Laboratory Tests 09/24/18 09/24/18 09/24/18 Range/Units 20:28 20:28 20:28 WBC 4.85 (4.0-11.0) K/uL RBC 4.65 (4.30-5.90) M/uL Hgb 13.4 (12.0-16.0) g/dL Hct 40.4 (36.0-46.0) % MCV 86.9 (80.0-98.0) fL MCH 28.8 (27.0-32.0) pg MCHC 33.2 (31.0-37.0) g/dL RDW Std Deviation 43.2 (28.0-62.0) fl RDW Coeff of Mamta 14 (11.0-15.0) % Plt Count 209 (150-400) K/uL MPV 9.50 (7.40-12.00) fL Neut % (Auto) 51.2 (48.0-80.0) % Lymph % (Auto) 37.3 (16.0-40.0) % [place] % (Auto) 7.4 (0.0-15.0) % Eos % (Auto) 3.5 (0.0-7.0) % Baso % (Auto) 0.6 (0.0-1.5) % Neut # (Auto) 2.5 (1.4-5.7) K/uL Lymph # (Auto) 1.8 (0.6-2.4) K/uL [place] # (Auto) 0.4 (0.0-0.8) K/uL Eos # (Auto) 0.2 (0.0-0.7) K/uL Baso # (Auto) 0.0 (0.0-0.1) K/uL Nucleated RBC % 0.0 /100WBC Nucleated RBCs # 0 K/uL INR 0.94 Sodium 141 (136-145) mmol/L Potassium 4.1 (3.5-5.1) mmol/L Chloride 105 (98-107) mmol/L Carbon Dioxide 29.1 (21.0-32.0) mmol/L BUN 16 (7.0-18.0) mg/dL Creatinine 0.8 (0.6-1.0) mg/dL Est Cr Clr Drug Dosing 79.63 mL/min Estimated GFR (MDRD) > 60.0 ml/min Glucose 167 H (74-106) mg/dL Calcium 9.2 (8.5-10.1) mg/dL Total Bilirubin 0.3 (0.2-1.0) mg/dL AST 27 (15-37) IU/L ALT 45 (14-63) IU/L Alkaline Phosphatase 95 (46-116) U/L Troponin I < 0.050 (0.000-0.056) ng/mL Total Protein 7.1 (6.4-8.2) g/dL Albumin 3.3 L (3.4-5.0) g/dL Globulin 3.8 (2.6-4.0) g/dL Albumin/Globulin Ratio 0.9 (0.9-1.6) Meds: Medications Generic Name Dose Route Start Last Admin Trade Name Freq PRN Reason Stop Dose Admin Sodium Chloride 10 ml 09/24/18 20:11 Saline Flush FLUSH ASDIRECTED PRN Keep Vein Open Sodium Chloride 2.5 ml 09/24/18 20:11 Saline Flush FLUSH ASDIRECTED PRN Keep Vein Open Discontinued Medications Generic Name Dose Route Start Last Admin Trade Name Freq PRN Reason Stop Dose Admin Albuterol/Ipratropium Confirm 09/24/18 20:27 09/24/18 20:35 Duoneb 3.0-0.5 Mg/3 Ml Administered 09/24/18 20:28 3 ml Dose Administration 3 ml .ROUTE .STK-MED ONE Departure - Departure Time of Disposition: 21:28 Disposition: Home, Self-Care 01 Condition: Good Clinical Impression: Chest pain, Asthma Prescriptions: methylPREDNISolone [Medrol] 4 mg PO ASDIRECTED #1 tab.ds.pk Referrals: Nitesh Ward MD [Primary Care Provider] - Forms: ED Department Discharge Additional Instructions: The following information is given to patients seen in the emergency department who are being discharged to home. This information is to outline your options for follow-up care. We provide all patients seen in our emergency department with a follow-up referral. The need for follow-up, as well as the timing and circumstances, are variable depending upon the specifics of your emergency department visit. If you don't have a primary care physician on staff, we will provide you with a referral. We always advise you to contact your personal physician following an emergency department visit to inform them of the circumstance of the visit and for follow-up with them and/or the need for any referrals to a consulting specialist. The emergency department will also refer you to a specialist when appropriate. This referral assures that you have the opportunity for follow-up care with a specialist. All of these measure are taken in an effort to provide you with optimal care, which includes your follow-up. Under all circumstances we always encourage you to contact your private physician who remains a resource for coordinating your care. When calling for follow-up care, please make the office aware that this follow-up is from your recent emergency room visit. If for any reason you are refused follow-up, please contact the [facility] Emergency Department at and asked to speak to the emergency department charge nurse. [facility] [address] [place] [address] [facility] [address] [place] [id number] 1. Use inhalers and take medication as instructed 2. Follow up with primary care provider 3. Return to ED as needed as discussed - My Orders Last 24 Hours: My Active Orders 09/24/18 20:11 Cardiac Monitoring [RC] . DIRECTED Sodium Chloride 0.9% [Saline Flush] 10 ml FLUSH ASDIRECTED PRN Sodium Chloride 0.9% [Saline Flush] 2.5 ml FLUSH ASDIRECTED PRN Saline Lock Insert [OM.PC] Stat 09/24/18 20:12 EKG Documentation Completion [RC] STAT - Assessment/Plan Last 24 Hours: My Active Orders 09/24/18 20:11 Cardiac Monitoring [RC] . DIRECTED Sodium Chloride 0.9% [Saline Flush] 10 ml FLUSH ASDIRECTED PRN Sodium Chloride 0.9% [Saline Flush] 2.5 ml FLUSH ASDIRECTED PRN Saline Lock Insert [OM.PC] Stat 09/24/18 20:12 EKG Documentation Completion [RC] STAT
[2018-09-24] MEDS ORDERED: Albuterol/Ipratropium 3.0-0.5 MG/3 ML Neb Soln ONE (20:27)
--- NOTE | 2018-09-24 21:00 | CR ---
INDICATION: Chest pain TECHNIQUE: Chest 1 view COMPARISON: None FINDINGS: Cardiovascular and mediastinum: Heart size and vasculature are normal in caliber and appearance. Lungs and pleural spaces: Lungs are clear. No sign of infiltrate or mass. No sign of pleural effusion. No pneumothorax. Bones and soft tissues: No significant findings. IMPRESSION: No acute or significant findings. Dictated by Michael Bernal MD @ Sep 24 2018 8:57PM Signed by Dr. Michael Bernal @ Sep 24 2018 8:57PM
[2018-09-24 21:17] LABS: CHLORIDE,CL 105 mmol/L (98-107); SODIUM,NA 141 mmol/L (136-145)
[2018-09-25 01:10] VITALS: BP 139/80
== END 2018-09-24 21:50 | disposition home or self-care (01) ==
LOC: MW.ED 20:01
DX: R07.9 Chest pain, unspecified (principal); J45.909 Unspecified asthma, uncomplicated; I10 Essential (primary) hypertension; K21.9 Gastro-esophageal reflux disease without esophagitis; F41.9 Anxiety disorder, unspecified; F32.9 Major depressive disorder, single episode, unspecified; E11.9 Type 2 diabetes mellitus without complications; Z79.899 Other long term (current) drug therapy
CPT/HCPCS: 36415; 71045; 71045-26; 80053; 84484; 85025; 85610; 93005; 94640; 99285-25; J7620-GY

== ENCOUNTER 2019-04-13 13:51 | Emergency (ER) | payer BC ==
--- NOTE | 2019-04-13 14:14 | EDM.PDOC ---
ED HPI GENERAL MEDICAL PROBLEM - General Chief Complaint: Lower Extremity Injury/Pain Stated Complaint: RIGHT KNEE PAIN Time Seen by Provider: 04/13/19 13:54 Source of Information: Reports: Patient History Limitations: Reports: No Limitations - History of Present Illness INITIAL COMMENTS - FREE TEXT/NARRATIVE: HISTORY AND PHYSICAL: History of present illness: Patient is a 48-year-old female presenting to the emergency room for complaints of "right knee pain". Patient states that she fell approximately 4 days ago while walking on the sidewalk. She states while she walking, "I wasn't paying attention and tripped on a sidewalk lip as it was not even". She states that "both knees" hit the ground. She currently rates the pain in her right knee at a 7 out of 10 describing it as "throbbing and burning". She states that the pain is on the lateral side of the patella. Aggravating factors include pending and "putting pressure". Reports no alleviating factors she has tried NSAIDs without relief. She states the pain does radiate into her right ambrocio. Patient denies any fever, chills, headache, change in vision, syncope or near syncope. Denies any chest pain, back pain, shortness of breath or cough. Denies any abdominal pain, nausea, vomiting, diarrhea, constipation or dysuria. Has not noted any blood in urine or stool. Patient has been eating and drinking appropriately. Review of systems: As per history of present illness and below otherwise all systems reviewed and negative. Past medical history: As per history of present illness and as reviewed below otherwise noncontributory. Surgical history: As per history of present illness and as reviewed below otherwise noncontributory. Social history: See social history for further information Family history: As per history of present illness and as reviewed below otherwise noncontributory. Physical exam: General: Patient is a well nourished and well developed 48-year-old female. Alert and orientated. Nontoxic in appearance and in no acute distress. Vital signs and reviewed by me. HEENT: Atraumatic, normocephalic, pupils equal and reactive bilaterally, negative for conjunctival pallor or scleral icterus, mucous membranes moist, TMs normal bilaterally, throat clear, neck supple, nontender, trachea midline. No drooling or trismus noted. No meningeal signs. No hot potato voice noted. Lungs: Clear to auscultation, breath sounds equal bilaterally, chest nontender. Heart: S1S2, regular rate and rhythm without overt murmur Abdomen: Soft, nondistended, nontender. Negative for masses or hepatosplenomegaly. Negative for costovertebral tenderness. Skin: Intact, warm, dry. No lesions or rashes noted. Extremities: Slight edema noted to the lateral aspect of the right patella, moves all extremities per self without difficulty or deficits, negative for cords or calf pain. Neurovascular unremarkable. Neuro: Awake, alert, oriented. Cranial nerves II through XII unremarkable. Cerebellum unremarkable. Motor and sensory unremarkable throughout. Exam nonfocal. Notes: X-ray shows no acute findings. Patient fitted for a knee brace and crutches. We discussed the importance of following up with the orthopedic provider. Supportive care measures were reviewed and discussed. Voices understanding and is agreeable to plan of care. Denies any further questions or concerns at this time. Diagnostics: Right knee x-ray Therapeutics: Crutches, Patellar cut-out Prescription: Diclofenac PRN Impression: Right knee injury Plan: 1. Please use Tylenol and/or Ibuprofen along with rest and ice as needed for pain management. 2. Get plenty of Rest. Elevate the affected extremity. 3. Please follow up with your primary care provider or orthopedist. Return to the ED as needed as discussed. Definitive disposition and diagnosis as appropriate pending reevaluation and review of above. right knee Pain Score (Numeric/FACES): 7 - Related Data Allergies Allergy/AdvReac Type Severity Reaction Status Date / Time No Known Allergies Allergy Verified 04/13/19 14:08 Home Meds: Home Meds Lisinopril/Hydrochlorothiazide [Lisinopril-HCTZ 10-12.5 MG] 1 tab PO DAILY 04/13 [History] Venlafaxine HCl [Venlafaxine ER] 150 mg PO DAILY 04/13/19 [History] lamoTRIgine [Lamictal XR] 200 mg PO DAILY 04/13/19 [History] metFORMIN [Glucophage XR] 3 tab PO BID 04/13/19 [History] Past Medical History HEENT History: Reports: None Other HEENT History: wears glasses Cardiovascular History: Reports: Hypertension Other Cardiovascular History: REports stress test in about October of this year after being hospitalized Respiratory History: Reports: Asthma Gastrointestinal History: Reports: GERD Other Gastrointestinal History: uses OTC treatment Other 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 History: 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: Musculoskeletal History: Reports: Back Pain, Chronic Other Musculoskeletal History: Chronic low back pain, hx: fracture Left foot Neurological History: Reports: Concussion, Vertigo Other Neuro History: Headaches, hx: Vertigo 'no problem currently' Psychiatric History: Reports: Anxiety, Depression Endocrine/Metabolic History: Reports: Diabetes, Type II, Obesity/BMI 30+ Other Endocrine/Metabolic History: Hypothyroidism - Infectious Disease History Infectious Disease History: Reports: Chicken Pox - Past Surgical History Head Surgeries/Procedures: Reports: None HEENT Surgical History: Reports: None Female Surgical History: Reports: Hysterectomy, Salpingo-Oophorectomy, Tubal Ligation Other Female Surgeries/Procedures: hx of bladder surgery Social & Family History - Family History Family Medical History: Noncontributory Cardiac: Reports: CAD, High Cholesterol, [place] Neurological: Reports: CVA - Caffeine Use Caffeine Use: Reports: Coffee Review of Systems - Review of Systems Review Of Systems: ROS reveals no pertinent complaints other than HPI. ED EXAM, GENERAL - Physical Exam Exam: See Below (See dictation) Course - Vital Signs Last Recorded V/S: Last Vital Signs Temp 98.3 F 04/13/19 14:11 Pulse 93 04/13/19 14:11 Resp 18 04/13/19 14:11 BP 160/94 H 04/13/19 14:11 Pulse Ox 98 04/13/19 14:11 - Orders/Labs/Meds Orders: Active Orders 24 hr Category Date Time Status DME for Discharge [COMM] Stat Oth 04/13/19 14:40 Ordered Departure - Departure Time of Disposition: 14:51 Disposition: Home, Self-Care 01 Clinical Impression: Right knee injury Qualifiers: Encounter type: initial encounter Qualified Code(s): S89.91XA - Unspecified injury of right lower leg, initial encounter - Discharge Information Instructions: Knee Sprain, Adult, [id number] Referrals: Nitesh Ward MD [Primary Care Provider] - Forms: ED Department Discharge Additional Instructions: The following information is given to patients seen in the emergency department who are being discharged to home. This information is to outline your options for follow-up care. We provide all patients seen in our emergency department with a follow-up referral. The need for follow-up, as well as the timing and circumstances, are variable depending upon the specifics of your emergency department visit. If you don't have a primary care physician on staff, we will provide you with a referral. We always advise you to contact your personal physician following an emergency department visit to inform them of the circumstance of the visit and for follow-up with them and/or the need for any referrals to a consulting specialist. The emergency department will also refer you to a specialist when appropriate. This referral assures that you have the opportunity for follow-up care with a specialist. All of these measure are taken in an effort to provide you with optimal care, which includes your follow-up. Under all circumstances we always encourage you to contact your private physician who remains a resource for coordinating your care. When calling for follow-up care, please make the office aware that this follow-up is from your recent emergency room visit. If for any reason you are refused follow-up, please contact the [facility] Emergency Department at and asked to speak to the emergency department charge nurse. [facility] [address] [place] [address] [place] [address] 1. Please use Tylenol and/or Ibuprofen along with rest and ice as needed for pain management. 2. Get plenty of Rest. Elevate the affected extremity. 3. Please follow up with your primary care provider or orthopedist. Return to the ED as needed as discussed. - My Orders Last 24 Hours: My Active Orders 04/13/19 14:40 DME for Discharge [COMM] Stat - Assessment/Plan Last 24 Hours: My Active Orders 04/13/19 14:40 DME for Discharge [COMM] Stat
--- NOTE | 2019-04-13 14:47 | CR ---
Right knee: AP, lateral and sunrise patellar views of the right knee were obtained. Comparison: No previous knee study. Medial and lateral joint compartments are maintained in height. Patellofemoral joint is normal. No joint effusion is seen. No fracture or other bony abnormality is seen. Impression: No abnormality is appreciated on right knee exam. Diagnostic code #1 MTDD
[2019-04-13 15:55] VITALS: BP 137/84; PULSE 85
== END 2019-04-13 14:57 | disposition home or self-care (01) ==
LOC: MW.ED 13:51
DX: S89.91XA Unspecified injury of right lower leg, initial encounter (principal); I10 Essential (primary) hypertension; E11.9 Type 2 diabetes mellitus without complications; E66.9 Obesity, unspecified; F41.9 Anxiety disorder, unspecified; F32.9 Major depressive disorder, single episode, unspecified; Z79.899 Other long term (current) drug therapy; Z68.38 Body mass index [BMI] 38.0-38.9, adult; Z79.84 Long term (current) use of oral hypoglycemic drugs; W01.0XXA Fall on same level from slipping, tripping and stumbling without subsequent striking against object, initial encounter; Y92.480 Sidewalk as the place of occurrence of the external cause; Y93.01 Activity, walking, marching and hiking
CPT/HCPCS: 73562-26-RT; 73562-RT; 99283-25

== ENCOUNTER 2019-12-04 18:01 | Emergency (ER) | payer BC, MEDICAID ==
[2019-12-04 18:33] VITALS: BP 142/78; PULSE 87
--- NOTE | 2019-12-04 18:41 | EDM.PDOC ---
ED HPI GENERAL MEDICAL PROBLEM - General Chief Complaint: Lower Extremity Injury/Pain Stated Complaint: RIGHT LOWER LEG INJURY Time Seen by Provider: 12/04/19 18:35 Source of Information: Reports: Patient History Limitations: Reports: No Limitations - History of Present Illness INITIAL COMMENTS - FREE TEXT/NARRATIVE: HISTORY AND PHYSICAL: History of present illness: Patient is a 49-year-old female who presents to the emergency room with complaints of left lateral/anterior leg pain, swelling, bruising and redness. A few days ago the dog leash had got wrapped around her leg and constricted and had a pulling sensation as she was trying to control her dog. Since that time she has had some bruising but now has noticed some redness, warmth and firm to touch at the skin site. Patient denies any fever, chills, headache, change in vision, syncope or near syncope. Denies any chest pain, back pain, shortness of breath or cough. Denies any GI or symptoms. Patient has been eating and drinking appropriately. Patient is a type II diabetic and has been monitoring her sugars. Review of systems: As per history of present illness and below otherwise all systems reviewed and negative. Past medical history: As per history of present illness and as reviewed below otherwise noncontributory. Surgical history: As per history of present illness and as reviewed below otherwise noncontributory. Social history: See social history for further information Family history: As per history of present illness and as reviewed below otherwise noncontributory. Physical exam: General: HEENT: Atraumatic, normocephalic, pupils equal and reactive bilaterally, negative for conjunctival pallor or scleral icterus, mucous membranes moist, TMs normal bilaterally, throat clear, neck supple, nontender, trachea midline. No drooling or trismus noted. No meningeal signs. No hot potato voice noted. Lungs: Clear to auscultation, breath sounds equal bilaterally, chest nontender. Heart: S1S2, regular rate and rhythm without overt murmur Abdomen: Soft, nondistended, nontender. Negative for masses or hepatosplenomegaly. Negative for costovertebral tenderness. Skin: Healing bruising noted to the left lateral and anterior lower extremity in the center of this fading bruise, there is some erythema that is firm to touch although non-fluctuant and nonindurated. Remaining skin is intact, warm, dry. No lesions or rashes noted. Extremities: Atraumatic, moves all extremities per self without difficulty or deficits, negative for cords or calf pain. Neurovascular unremarkable. Neuro: Awake, alert, oriented. Cranial nerves II through XII unremarkable. Cerebellum unremarkable. Motor and sensory unremarkable throughout. Exam nonfocal. Notes: Patient is a type II diabetic and there is some suspicion of cellulitis. Will obtain an x-ray and a CBC. X-ray shows no bony abnormalities or subcutaneous gas. CBC is unremarkable. We discussed signs and symptoms that would prompt her to return to the emergency room. Medication and supportive care measures were reviewed and discussed. Voices understanding and is agreeable to plan of care. Denies any further questions or concerns at this time. Diagnostics: CBC, Tib/Fib Therapeutics: None Prescription: Keflex Impression: Cellulitis, left lower extremity Plan: 1. Rest, ice, elevate the affected extremity. Continue to monitor the skin for signs of improvement; if after 1-2 days the area gets worse you need to return to the ED for re-evaluation. Continue to monitor your blood sugars 2. Tylenol and/or Ibuprofen as needed for pain management. 3. Follow up with the Orthopedic provider as we discussed. Return to the ED as needed and as discussed. Definitive disposition and diagnosis as appropriate pending reevaluation and review of above. Left Lower Leg Pain Score (Numeric/FACES): 4 - Related Data Allergies Allergy/AdvReac Type Severity Reaction Status Date / Time No Known Allergies Allergy Verified 04/13/19 14:08 Home Meds: Home Meds Lisinopril/Hydrochlorothiazide [Lisinopril-HCTZ 10-12.5 MG] 1 tab PO DAILY 04/13 [History] Venlafaxine HCl [Venlafaxine ER] 150 mg PO DAILY 04/13/19 [History] lamoTRIgine [Lamictal XR] 200 mg PO DAILY 04/13/19 [History] metFORMIN [Glucophage XR] 3 tab PO BID 04/13/19 [History] cephALEXin [Keflex] 500 mg PO TID 7 Days #21 cap 12/04/19 [Rx] Past Medical History HEENT History: Reports: None Other HEENT History: wears glasses Cardiovascular History: Reports: Hypertension Other Cardiovascular History: REports stress test in about October of this year after being hospitalized Respiratory History: Reports: Asthma Gastrointestinal History: Reports: GERD Other Gastrointestinal History: uses OTC treatment Other 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 History: 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: Musculoskeletal History: Reports: Back Pain, Chronic Other Musculoskeletal History: Chronic low back pain, hx: fracture Left foot Neurological History: Reports: Concussion, Vertigo Other Neuro History: Headaches, hx: Vertigo 'no problem currently' Psychiatric History: Reports: Anxiety, Depression Endocrine/Metabolic History: Reports: Diabetes, Type II, Obesity/BMI 30+ Other Endocrine/Metabolic History: Hypothyroidism - Infectious Disease History Infectious Disease History: Reports: Chicken Pox - Past Surgical History Head Surgeries/Procedures: Reports: None HEENT Surgical History: Reports: None Female Surgical History: Reports: Hysterectomy, Salpingo-Oophorectomy, Tubal Ligation Other Female Surgeries/Procedures: hx of bladder surgery Social & Family History - Family History Family Medical History: Noncontributory Cardiac: Reports: CAD, High Cholesterol, [place] Neurological: Reports: CVA - Tobacco Use Smoking Status *Q: Never Smoker Second Hand Smoke Exposure: No - Caffeine Use Caffeine Use: Reports: None - Recreational Drug Use Recreational Drug Use: No Review of Systems - Review of Systems Review Of Systems: Comprehensive ROS is negative, except as noted in HPI. ED EXAM, GENERAL - Physical Exam Exam: See Below (See dictation) Course - Vital Signs Last Recorded V/S: Last Vital Signs Temp 97.2 F 12/04/19 18:32 Pulse 87 12/04/19 18:32 Resp 18 12/04/19 18:32 BP 142/78 H 12/04/19 18:32 Pulse Ox 97 12/04/19 18:32 - Orders/Labs/Meds Orders: Active Orders 24 hr Category Date Time Status Tibia Fibula Lt [CR] Stat Exams 12/04/19 18:37 Ordered CBC WITH AUTO DIFF [HEME] Stat Lab 12/04/19 18:37 Ordered Labs: Laboratory Tests 12/04/19 Range/Units 18:45 WBC 5.37 (4.0-11.0) K/uL RBC 4.82 (4.30-5.90) M/uL Hgb 14.1 (12.0-16.0) g/dL Hct 42.5 (36.0-46.0) % MCV 88.2 (80.0-98.0) fL MCH 29.3 (27.0-32.0) pg MCHC 33.2 (31.0-37.0) g/dL RDW Std Deviation 41.3 (28.0-62.0) fl RDW Coeff of Mamta 13 (11.0-15.0) % Plt Count 192 (150-400) K/uL MPV 10.20 (7.40-12.00) fL Neut % (Auto) 50.6 (48.0-80.0) % Lymph % (Auto) 38.4 (16.0-40.0) % [place] % (Auto) 7.6 (0.0-15.0) % Eos % (Auto) 2.8 (0.0-7.0) % Baso % (Auto) 0.6 (0.0-1.5) % Neut # (Auto) 2.7 (1.4-5.7) K/uL Lymph # (Auto) 2.1 (0.6-2.4) K/uL [place] # (Auto) 0.4 (0.0-0.8) K/uL Eos # (Auto) 0.2 (0.0-0.7) K/uL Baso # (Auto) 0.0 (0.0-0.1) K/uL Nucleated RBC % 0.0 /100WBC Nucleated RBCs # 0 K/uL Departure - Departure Time of Disposition: 19:02 Disposition: Home, Self-Care 01 Clinical Impression: Cellulitis Qualifiers: Site of cellulitis: extremity Site of cellulitis of extremity: lower extremity Laterality: left Qualified Code(s): L03.116 - Cellulitis of left lower limb - Discharge Information Prescriptions: cephALEXin [Keflex] 500 mg PO TID 7 Days #21 cap Instructions: Cellulitis, Adult, [id number] Referrals: Nitesh Ward MD [Primary Care Provider] - Forms: ED Department Discharge Additional Instructions: The following information is given to patients seen in the emergency department who are being discharged to home. This information is to outline your options for follow-up care. We provide all patients seen in our emergency department with a follow-up referral. The need for follow-up, as well as the timing and circumstances, are variable depending upon the specifics of your emergency department visit. If you don't have a primary care physician on staff, we will provide you with a referral. We always advise you to contact your personal physician following an emergency department visit to inform them of the circumstance of the visit and for follow-up with them and/or the need for any referrals to a consulting specialist. The emergency department will also refer you to a specialist when appropriate. This referral assures that you have the opportunity for follow-up care with a specialist. All of these measure are taken in an effort to provide you with optimal care, which includes your follow-up. Under all circumstances we always encourage you to contact your private physician who remains a resource for coordinating your care. When calling for follow-up care, please make the office aware that this follow-up is from your recent emergency room visit. If for any reason you are refused follow-up, please contact the [facility] Emergency Department at and asked to speak to the emergency department charge nurse. [facility] [address] [place] [id number] [facility] [address] [place] [id number] 1. Rest, ice, elevate the affected extremity. Continue to monitor the skin for signs of improvement; if after 1-2 days the area gets worse you need to return to the ED for re-evaluation. Continue to monitor your blood sugars 2. Tylenol and/or Ibuprofen as needed for pain management. 3. Follow up with the Orthopedic provider as we discussed. Return to the ED as needed and as discussed. Sepsis Event Note - Evaluation Sepsis Screening Result: No Definite Risk - Focused Exam Vital Signs: Vital Signs Temp Pulse Resp BP Pulse Ox 12/04/19 18:32 97.2 F 87 18 142/78 H 97 Date Exam was Performed: 12/04/19 Time Exam was Performed: 18:59 - My Orders Last 24 Hours: My Active Orders 12/04/19 18:37 Tibia Fibula Lt [CR] Stat CBC WITH AUTO DIFF [HEME] Stat - Assessment/Plan Last 24 Hours: My Active Orders 12/04/19 18:37 Tibia Fibula Lt [CR] Stat CBC WITH AUTO DIFF [HEME] Stat
--- NOTE | 2019-12-04 19:14 | CR ---
INDICATION: Tibia injury TECHNIQUE: Tibia-fibula radiograph 4 views left COMPARISON: None FINDINGS: Bone: No acute fractures or aggressive bone lesions are identified. Joint: The visualized knee and ankle joints are unremarkable. No significant joint effusion is seen. Soft tissue: Unremarkable. No radiopaque foreign bodies are seen. IMPRESSION: 1. No acute osseous injuries or abnormalities are noted. Dictated by: Maulik Peraza MD @ 12/04/2019 19:13:23 (Electronically Signed)
== END 2019-12-04 19:31 | disposition home or self-care (01) ==
LOC: MW.ED 18:01
DX: L03.116 Cellulitis of left lower limb (principal); E11.9 Type 2 diabetes mellitus without complications; I10 Essential (primary) hypertension; E66.9 Obesity, unspecified; Z68.45 Body mass index [BMI] 70 or greater, adult; F41.9 Anxiety disorder, unspecified; F32.9 Major depressive disorder, single episode, unspecified; J45.909 Unspecified asthma, uncomplicated; Z79.84 Long term (current) use of oral hypoglycemic drugs; Z79.899 Other long term (current) drug therapy
CPT/HCPCS: 36415; 73590-26-LT; 73590-LT; 85025; 99283

== ENCOUNTER 2020-03-13 02:03 | Emergency (ER) | payer SELFPAY ==
[2020-03-13] MEDS ORDERED: Diphtheria,Pertussis(Acell),Tetanus Vaccine 0.5 ML Syringe IM ONE (02:28)
[2020-03-13 02:29] VITALS: BP 153/81; PULSE 79
--- NOTE | 2020-03-13 02:33 | EDM.PDOC ---
ED HPI GENERAL MEDICAL PROBLEM - General Chief Complaint: Lower Extremity Injury/Pain Stated Complaint: RT FOOT HURTS Time Seen by Provider: 03/13/20 02:45 - History of Present Illness INITIAL COMMENTS - FREE TEXT/NARRATIVE: History of present illness: [] The patient stepped on tanisha a few months ago. She pulled as many out as she could. She had no symptoms until last night. Now feels like there is a painful staple in the heel. No systemic signs of infection. Review of systems: As per history of present illness and below otherwise all systems reviewed and negative. Past medical history: As per history of present illness and as reviewed below otherwise noncontributory. Surgical history: As per history of present illness and as reviewed below otherwise noncontributory. Social history: No reported history of drug or alcohol abuse. Family history: As per history of present illness and as reviewed below otherwise noncontributory. Physical exam: Constitutional - well developed, well-nourished and in no acute distress HEENT - normocephalic, no evidence of trauma - external nose and mouth normal - no mass in neck and no JVD - mucosae moist EYES - full EOM, PERRL, no icterus - no evidence of inflammation, injection, or drainage Respiratory - no respiratory distress, equal bilateral expansion Musculoskeletal no gross deformity of long bones or joints - no tenderness, swelling or edema Neurologic - Alert and oriented times four - CN II-XII grossly intact - motor sensory and coordination symmetrically normal Psychiatric - appropriate mood and affect with normal thought content Hematologic - No petechiae or purpura - mucosa appropriate color and sclera not pale - normal nail bed color and refill Integument -over the right heel there is a small laceration 1 cm in length with hyperkeratosis in the surrounding area and exquisite tenderness at the site. No evidence of infection with no streaking up the leg and no warmth. No rash or evidence of trauma - normal turgor Diagnostics: [] Therapeutics: [] Impression: [] Plan: [] Definitive disposition and diagnosis as appropriate pending reevaluation and review of above. Right Foot Pain Score (Numeric/FACES): 8 - Related Data Allergies Allergy/AdvReac Type Severity Reaction Status Date / Time No Known Allergies Allergy Verified 04/13/19 14:08 Home Meds: Home Meds Lisinopril/Hydrochlorothiazide [Lisinopril-HCTZ 10-12.5 MG] 1 tab PO DAILY 04/13/19 [History] lamoTRIgine [Lamictal XR] 200 mg PO DAILY 04/13/19 [History] metFORMIN [Glucophage XR] 3 tab PO BID 04/13/19 [History] FLUoxetine HCl [Prozac] 03/13/20 [History] Past Medical History HEENT History: Reports: None Other HEENT History: wears glasses Cardiovascular History: Reports: Hypertension Other Cardiovascular History: REports stress test in about October of this year after being hospitalized Respiratory History: Reports: Asthma Gastrointestinal History: Reports: GERD Other Gastrointestinal History: uses OTC treatment Other 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 History: Urinary urgency [employer] History: Reports: Musculoskeletal History: Reports: Back Pain, Chronic Other Musculoskeletal History: Chronic low back pain, hx: fracture Left foot Neurological History: Reports: Concussion, Vertigo Other Neuro History: Headaches, hx: Vertigo 'no problem currently' Psychiatric History: Reports: Anxiety, Depression Endocrine/Metabolic History: Reports: Diabetes, Type II, Obesity/BMI 30+ Other Endocrine/Metabolic History: Hypothyroidism - Infectious Disease History Infectious Disease History: Reports: Chicken Pox - Past Surgical History Head Surgeries/Procedures: Reports: None HEENT Surgical History: Reports: None Female Surgical History: Reports: Hysterectomy, Salpingo-Oophorectomy, Tubal Ligation Other Female Surgeries/Procedures: hx of bladder surgery Social & Family History - Family History Family Medical History: Noncontributory Cardiac: Reports: CAD, High Cholesterol, [place] Neurological: Reports: CVA - Caffeine Use Caffeine Use: Reports: None Review of Systems - Review of Systems Review Of Systems: Comprehensive ROS is negative, except as noted in HPI. ED EXAM, GENERAL - Physical Exam Exam: See Below Free Text/Narrative:: My physical exam is in the HPI Course - Vital Signs Last Recorded V/S: Last Vital Signs Temp 96.9 F 03/13/20 02:24 Pulse 79 03/13/20 02:24 Resp 18 03/13/20 02:24 BP 153/81 H 03/13/20 02:24 Pulse Ox 97 03/13/20 02:24 - Orders/Labs/Meds Orders: Active Orders 24 hr Category Date Time Status Vaccines to be Administered [RC] PER UNIT ROUTINE Care 03/13/20 02:28 Active Foot 2V Rt [CR] Stat Exams 03/13/20 02:27 Taken Meds: Medications Discontinued Medications Generic Name Dose Route Start Last Admin Trade Name Jolene PRN Reason Stop Dose Admin Diphtheria/Tetanus/Acell Pertussis 0.5 ml 03/13/20 02:28 Adacel IM 03/13/20 02:29 .ONCE ONE Departure - Departure Time of Disposition: 03:16 Disposition: Home, Self-Care 01 Condition: Good Clinical Impression: Laceration of heel - Discharge Information Referrals: Nitesh Ward MD [Primary Care Provider] - Severo Galicia DPM [Physician] - Forms: ED Department Discharge Additional Instructions: Heel has a split full-thickness through the thick skin. You need to go to the display forefoot pads like Dr. Barrera's and by a pad that has a hole that is about a centimeter wide. With assistance placed this pads of the holes directly over this cut. You will need to do that for quite some time until it begins to heal. It takes a long time for the heel to heal. Dr. Luis Eduardo Quintanilla - [employer] [facility] [address] [place] [address], [address] [place] [address] [facility] [address] [place] [address] [place] [address] Discharge Sepsis Event Note (ED) - Focused Exam Vital Signs: Vital Signs Temp Pulse Resp BP Pulse Ox 03/13/20 02:24 96.9 F 79 18 153/81 H 97 - My Orders Last 24 Hours: My Active Orders 03/13/20 02:27 Foot 2V Rt [CR] Stat 03/13/20 02:28 Vaccines to be Administered [RC] PER UNIT ROUTINE - Assessment/Plan Last 24 Hours: My Active Orders 03/13/20 02:27 Foot 2V Rt [CR] Stat 03/13/20 02:28 Vaccines to be Administered [RC] PER UNIT ROUTINE
--- NOTE | 2020-03-13 03:28 | CR ---
Indication: Possible foreign body at heel. Technique: Two views Comparison: None Findings: Bones: No evidence of fracture. Well-formed plantar and Achilles heel spurs. Joint spaces: Unremarkable. Soft tissues: No radiopaque foreign body seen. Dictated by Michael Bernal MD @ Mar 13 2020 3:25AM Signed by Dr. Michael Bernal @ Mar 13 2020 3:27AM
== END 2020-03-13 03:53 | disposition home or self-care (01) ==
LOC: MW.ED 02:03
DX: S91.311A Laceration without foreign body, right foot, initial encounter (principal); I10 Essential (primary) hypertension; J45.909 Unspecified asthma, uncomplicated; E11.9 Type 2 diabetes mellitus without complications; E66.9 Obesity, unspecified; Z79.84 Long term (current) use of oral hypoglycemic drugs; Z23 Encounter for immunization; Z79.899 Other long term (current) drug therapy; X58.XXXA Exposure to other specified factors, initial encounter
CPT/HCPCS: 73620-26-RT; 73620-RT; 90471; 90715; 99282; 99283-25

== ENCOUNTER 2020-05-01 22:11 | Observation (INO) | payer SELFPAY ==
[2020-05-01] MEDS ORDERED: Sodium Chloride 0.9% 2.5 ML Syringe FLUSH PRN (22:27)
[2020-05-01] MEDS ORDERED: Sodium Chloride 0.9% 1,000 ML IV ONE (22:27)
[2020-05-01] MEDS ORDERED: Sodium Chloride 0.9% 10 ML Syringe FLUSH PRN (22:27)
[2020-05-01] MEDS ORDERED: Aspirin 81 MG Tab.Chew PO ONE (22:27)
[2020-05-01 22:51] LABS: BLOOD UREA NITROGEN,BUN 15 mg/dL (7.0-18.0); CARBON DIOXIDE,CO2 26.2 mmol/L (21.0-32.0); CHLORIDE,CL 99 mmol/L (98-107); GLUCOSE RANDOM 352 mg/dL (74-106); POTASSIUM,K 3.8 mmol/L (3.5-5.1); SODIUM,NA 135 mmol/L (136-145)
--- NOTE | 2020-05-01 23:28 | CR ---
INDICATION: Shortness of breath TECHNIQUE: Chest radiograph 1 view COMPARISON: None FINDINGS: Severe degradation of image quality noted due to body habitus. Mediastinum: The mediastinum is normal in appearance. The heart silhouette is normal in size and morphology. Lung: Both lungs are unremarkable in appearance. No sign of pleural effusion seen. No pneumothorax is identified. Bone and Soft tissue: Unremarkable for age. IMPRESSION: 1. No acute cardiopulmonary disease is seen. Dictated by: Maulik Peraza MD @ 05/01/2020 23:27:03 (Electronically Signed)
[2020-05-01] MEDS ORDERED: Iopamidol 755 MG/ML 500 ML Multipack Bottle IVPUSH STA (23:49)
--- NOTE | 2020-05-02 00:22 | CT ---
INDICATION: Chest pain, elevated D-dimer TECHNIQUE: CT chest with i.v. contrast during the venous phase. Coronal and sagittal reformats were obtained. CONTRAST: 100 mL Isovue 370 COMPARISON: None FINDINGS: Cardiovascular: The heart has an unremarkable appearance and size. The pulmonary arteries are unremarkable in appearance. No sign of aneurysm or dissection in the thoracic aorta. Mediastinum: No mass or adenopathy seen. Lung: Both lungs are unremarkable in appearance. Pleura and pericardium: No sign of pleural effusion seen. No significant pericardial effusion is present. Chest wall and axilla: No mass or adenopathy seen. Bone: Unremarkable for age. Upper abdomen: Moderate fatty infiltration liver is noted. IMPRESSION: 1. Unremarkable CT appearance of the chest. Dictated by Maulik Peraza MD @ 05/02/2020 12:22:22 AM Please note that all CT scans at this facility use dose modulation, iterative reconstruction, and/or weight-based dosing when appropriate to reduce radiation dose to as low as reasonably achievable. Dictated by: Maulik Peraza MD @ 05/02/2020 00:22:29 (Electronically Signed)
--- NOTE | 2020-05-02 00:36 | EDM.PDOC ---
ED HPI GENERAL MEDICAL PROBLEM - General Chief Complaint: Chest Pain Stated Complaint: CHEST TIGHT, PAIN Time Seen by Provider: 05/01/20 22:22 - History of Present Illness INITIAL COMMENTS - FREE TEXT/NARRATIVE: HISTORY AND PHYSICAL: History of present illness: This is a 49-year-old female with a history significant for diabetes, hypertension, asthma who presents the ER today secondary to left-sided chest pressure that is been intermittent for 2 days. Patient reports pain increases with exertion and decreases with rest. Patient denies any pain rating to her jaw arms or back. Patient reports associated shortness of breath but no nausea, diaphoresis, nausea. Patient denies any recent fevers, shakes, chills, nausea, vomiting, diarrhea, abdominal pain, dysuria, frequency, urgency. Patient denies any recent cough, cold, URI symptoms. Patient denies any coronavirus symptoms. Patient reports she does have a history significant for asthma and she thought that this may be related to her asthma so she has been taking her inhalers but has not had any change in her resolution and discomfort with her albuterol inhalers. Patient has a history of noncemented diabetes, hypertension, asthma, patient denies any history of high cholesterol, liver problems, kidney problems, coronary disease, strokes. Patient denies any family history of coronary artery disease. Patient denies any tobacco alcohol or drugs. Patient is status post total abdominal hysterectomy. Patient has no known drug allergies. Patient is currently pain-free while in the ED. Patient denies any history of PE or DVT. Patient denies any lower extremity edema or calf tenderness. Review of systems: As per history of present illness and below otherwise all systems reviewed and negative. Past medical history: As per history of present illness and as reviewed below otherwise noncontributory. Surgical history: As per history of present illness and as reviewed below otherwise noncontributory. Social history: No reported history of drug or alcohol abuse. Family history: As per history of present illness and as reviewed below otherwise noncontributory. Physical exam: Constitutional: Patient is oriented to person, place, and time. Appears well- developed and well-nourished. No distress. HEENT: Moist mucous membranes Head: Normocephalic and atraumatic Eyes: Right eye exhibits no discharge. Left eye exhibits no discharge. No sc leral icterus Neck: Normal range of motion. No tracheal deviation present. Cardiovascular: Normal rate and regular rhythm. Pulmonary: No wheezing rales or rhonchi. No respiratory distress. Normal effort. Abdominal: No distention Musculoskeletal: Normal range of motion Neurologic: Alert and oriented to person, place and time. Skin: [place], warm and dry. Psychiatric: Normal mood and affect. Behavior is normal. Judgment and thought content normal. Nursing note and vital signs have been reviewed Diagnostics: CBC, CMP, troponin within normal limits. D-dimer elevated 0.68. Chest Xray: Normal cardiac silhouette No infiltrates or effusions identified. No PTX No evidence of acute bony fracture. As interpreted by ER MD: Geovany EKG: Normal sinus rhythm heart rate of [address]-T wave abnormalities Normal axis No evidence of ST elevation MD As interpreted by ER physician: Geovany CTA of thorax reveals no evidence of pulmonary embolism or dissection. Assessment and plan: This is a 49-year-old female who presents ER today secondary to left-sided midsternal chest pressure that is been intermittent for 2 days. Patient does have a history significant for hypertension and diabetes. Patient reports no prior cardiac evaluations. Patient reports pain increases with exertion and decreases with rest. Patient's ER work-up is been unremarkable. Patient's EKG does not reveal an ST elevation MD. Patient CTA was obtained secondary to elevated D-dimer. Patient's CTA is normal. Patient currently is pain-free in the ED. Patient be admitted to the hospital for further cardiac evaluation. Definitive disposition and diagnosis as appropriate pending reevaluation and review of above. chest Pain Score (Numeric/FACES): 5 - Related Data Allergies Allergy/AdvReac Type Severity Reaction Status Date / Time No Known Allergies Allergy Verified 05/01/20 22:26 Home Meds: Home Meds Lisinopril/Hydrochlorothiazide [Lisinopril-HCTZ 10-12.5 MG] 1 tab PO DAILY 04/13/19 [History] lamoTRIgine [Lamictal XR] 200 mg PO DAILY 04/13/19 [History] metFORMIN [Glucophage XR] 3 tab PO BID 04/13/19 [History] FLUoxetine HCl [Prozac] 03/13/20 [History] Past Medical History HEENT History: Reports: None Other HEENT History: wears glasses Cardiovascular History: Reports: Hypertension Other Cardiovascular History: REports stress test in about October of this year afte r being hospitalized Respiratory History: Reports: Asthma Gastrointestinal History: Reports: GERD Other Gastrointestinal History: uses OTC treatment Other 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 History: Urinary urgency [employer] History: Reports: Musculoskeletal History: Reports: Back Pain, Chronic Other Musculoskeletal History: Chronic low back pain, hx: fracture Left foot Neurological History: Reports: Concussion, Vertigo Other Neuro History: Headaches, hx: Vertigo 'no problem currently' Psychiatric History: Reports: Anxiety, Depression Endocrine/Metabolic History: Reports: Diabetes, Type II, Obesity/BMI 30+ Other Endocrine/Metabolic History: Hypothyroidism Hematologic History: Reports: None Immunologic History: Reports: None - Infectious Disease History Infectious Disease History: Reports: Chicken Pox - Past Surgical History Head Surgeries/Procedures: Reports: None HEENT Surgical History: Reports: None Female Surgical History: Reports: Hysterectomy, Salpingo-Oophorectomy, Tubal Ligation Other Female Surgeries/Procedures: hx of bladder surgery Social & Family History - Family History Family Medical History: Noncontributory Cardiac: Reports: CAD, High Cholesterol, MD Neurological: Reports: CVA - Tobacco Use Tobacco Use Status *Q: Never Tobacco User - Caffeine Use Caffeine Use: Reports: None - Recreational Drug Use Recreational Drug Use: No ED ROS GENERAL - Review of Systems Review Of Systems: See Below ED EXAM, GENERAL - Physical Exam Exam: See Below #1 Interpretation EKG Interpretation Comments: EKG: Normal sinus rhythm heart rate of [address]-T wave abnormalities Normal axis No evidence of ST elevation MD As interpreted by ER physician: Geovany Course - Vital Signs Last Recorded V/S: Last Vital Signs Temp 97.6 F 05/01/20 22:27 Pulse 76 05/02/20 01:02 Resp 16 05/02/20 01:02 BP 148/77 H 05/02/20 01:02 Pulse Ox 97 05/02/20 01:02 - Orders/Labs/Meds Orders: Active Orders 24 hr Category Date Time Status Patient Status [ADT] Routine ADT 05/02/20 00:38 Active Sodium Chloride 0.9% [Saline Flush] Med 05/01/20 22:27 Active 10 ml FLUSH ASDIRECTED PRN Sodium Chloride 0.9% [Saline Flush] Med 05/01/20 22:27 Active 2.5 ml FLUSH ASDIRECTED PRN Saline Lock Insert [OM.PC] Stat Oth 05/01/20 22:27 Ordered Medication Orders Sodium Chloride (Saline Flush) 10 ml FLUSH ASDIRECTED PRN PRN Reason: Keep Vein Open Last Admin: 05/01/20 23:02 Dose: 10 ml Documented by: ZAIRE Sodium Chloride (Saline Flush) 2.5 ml FLUSH ASDIRECTED PRN PRN Reason: Keep Vein Open Last Admin: 05/01/20 23:02 Dose: 2.5 ml Documented by: ZAIRE Labs: Laboratory Tests 05/01/20 05/01/20 05/01/20 Range/Units 22:15 22:15 22:15 WBC 6.03 (4.0-11.0) K/uL RBC 5.09 (4.30-5.90) M/uL Hgb 15.1 (12.0-16.0) g/dL Hct 45.5 (36.0-46.0) % MCV 89.4 (80.0-98.0) fL MCH 29.7 (27.0-32.0) pg MCHC 33.2 (31.0-37.0) g/dL RDW Std Deviation 41.9 (28.0-62.0) fl RDW Coeff of Mamta 13 (11.0-15.0) % Plt Count 209 (150-400) K/uL MPV 10.10 (7.40-12.00) fL Neut % (Auto) 48.4 (48.0-80.0) % Lymph % (Auto) 42.3 H (16.0-40.0) % Saunders % (Auto) 6.6 (0.0-15.0) % Eos % (Auto) 2.2 (0.0-7.0) % Baso % (Auto) 0.5 (0.0-1.5) % Neut # (Auto) 2.9 (1.4-5.7) K/uL Lymph # (Auto) 2.6 H (0.6-2.4) K/uL Saunders # (Auto) 0.4 (0.0-0.8) K/uL Eos # (Auto) 0.1 (0.0-0.7) K/uL Baso # (Auto) 0.0 (0.0-0.1) K/uL Nucleated RBC % 0.0 /100WBC Nucleated RBCs # 0 K/uL D-Dimer, Quantitative 0.68 H (0.0-0.50) mg/L FEU Sodium 135 L (136-145) mmol/L Potassium 3.8 (3.5-5.1) mmol/L Chloride 99 (98-107) mmol/L Carbon Dioxide 26.2 (21.0-32.0) mmol/L BUN 15 (7.0-18.0) mg/dL Creatinine 1.1 H (0.6-1.0) mg/dL Est Cr Clr Drug Dosing 63.94 mL/min Estimated GFR (MDRD) 52.6 ml/min Glucose 352 H (74-106) mg/dL Calcium 9.4 (8.5-10.1) mg/dL Magnesium 1.7 L (1.8-2.4) mg/dL Total Bilirubin 0.3 (0.2-1.0) mg/dL AST 30 (15-37) IU/L ALT 57 (14-63) IU/L Alkaline Phosphatase 106 (46-116) U/L Troponin I < 0.050 (0.000-0.056) ng/mL B-Natriuretic Peptide (<100) PG/ML Total Protein 7.6 (6.4-8.2) g/dL Albumin 3.7 (3.4-5.0) g/dL Globulin 3.9 (2.6-4.0) g/dL Albumin/Globulin Ratio 0.9 (0.9-1.6) 05/01/20 Range/Units 22:15 WBC (4.0-11.0) K/uL RBC (4.30-5.90) M/uL Hgb (12.0-16.0) g/dL Hct (36.0-46.0) % MCV (80.0-98.0) fL MCH (27.0-32.0) pg MCHC (31.0-37.0) g/dL RDW Std Deviation (28.0-62.0) fl RDW Coeff of Mamta (11.0-15.0) % Plt Count (150-400) K/uL MPV (7.40-12.00) fL Neut % (Auto) (48.0-80.0) % Lymph % (Auto) (16.0-40.0) % Saunders % (Auto) (0.0-15.0) % Eos % (Auto) (0.0-7.0) % Baso % (Auto) (0.0-1.5) % Neut # (Auto) (1.4-5.7) K/uL Lymph # (Auto) (0.6-2.4) K/uL Saunders # (Auto) (0.0-0.8) K/uL Eos # (Auto) (0.0-0.7) K/uL Baso # (Auto) (0.0-0.1) K/uL Nucleated RBC % /100WBC Nucleated RBCs # K/uL D-Dimer, Quantitative (0.0-0.50) mg/L FEU Sodium (136-145) mmol/L Potassium (3.5-5.1) mmol/L Chloride (98-107) mmol/L Carbon Dioxide (21.0-32.0) mmol/L BUN (7.0-18.0) mg/dL Creatinine (0.6-1.0) mg/dL Est Cr Clr Drug Dosing mL/min Estimated GFR (MDRD) ml/min Glucose (74-106) mg/dL Calcium (8.5-10.1) mg/dL Magnesium (1.8-2.4) mg/dL Total Bilirubin (0.2-1.0) mg/dL AST (15-37) IU/L ALT (14-63) IU/L Alkaline Phosphatase (46-116) U/L Troponin I (0.000-0.056) ng/mL B-Natriuretic Peptide 26 (<100) PG/ML Total Protein (6.4-8.2) g/dL Albumin (3.4-5.0) g/dL Globulin (2.6-4.0) g/dL Albumin/Globulin Ratio (0.9-1.6) Meds: Medications Generic Name Dose Route Start Last Admin Trade Name Freq PRN Reason Stop Dose Admin Sodium Chloride 10 ml 05/01/20 22:27 05/01/20 23:02 Saline Flush FLUSH 10 ml ASDIRECTED PRN Administration Keep Vein Open Sodium Chloride 2.5 ml 05/01/20 22:27 05/01/20 23:02 Saline Flush FLUSH 2.5 ml ASDIRECTED PRN Administration Keep Vein Open Discontinued Medications Generic Name Dose Route Start Last Admin Trade Name Jolene PRN Reason Stop Dose Admin Aspirin 324 mg 05/01/20 22:27 05/01/20 22:36 Aspirin PO 05/01/20 22:28 324 mg ONETIME ONE Administration Sodium Chloride 1,000 mls @ 999 mls/hr 05/01/20 22:27 05/01/20 22:36 Normal Saline IV 05/01/20 23:27 999 mls/hr .Bolus ONE Administration Iopamidol 100 ml 05/01/20 23:49 05/01/20 23:49 Isovue Multipack-370 (76%) IVPUSH 05/01/20 23:50 100 ml ONETIME STA Administration Departure - Departure Time of Disposition: 00:36 Disposition: Refer to Observation Condition: Good Clinical Impression: Acute coronary syndrome, Diabetes, Hypertension - Discharge Information Sepsis Event Note (ED) - Evaluation Sepsis Screening Result: No Definite Risk - Focused Exam Vital Signs: Vital Signs Temp Pulse Resp BP Pulse Ox 05/02/20 00:31 74 16 146/80 H 97 05/01/20 23:02 79 16 160/78 H 97 05/01/20 22:27 97.6 F 82 20 163/84 H 96 - My Orders Last 24 Hours: My Active Orders 05/01/20 22:27 Sodium Chloride 0.9% [Saline Flush] 10 ml FLUSH ASDIRECTED PRN Sodium Chloride 0.9% [Saline Flush] 2.5 ml FLUSH ASDIRECTED PRN Saline Lock Insert [OM.PC] Stat 05/02/20 00:38 Patient Status [ADT] Routine - Assessment/Plan Last 24 Hours: My Active Orders 05/01/20 22:27 Sodium Chloride 0.9% [Saline Flush] 10 ml FLUSH ASDIRECTED PRN Sodium Chloride 0.9% [Saline Flush] 2.5 ml FLUSH ASDIRECTED PRN Saline Lock Insert [OM.PC] Stat 05/02/20 00:38 Patient Status [ADT] Routine
[2020-05-02] MEDS ORDERED: Acetaminophen 325 MG Tab PO PRN (02:37)
[2020-05-02] MEDS ORDERED: Glucagon,Human Recombinant 1 MG Vial IM PRN (02:38)
[2020-05-02] MEDS ORDERED: 50% Dextrose in Water 50 ML Syringe IV PRN (02:38)
[2020-05-02 06:07] LABS: HEMOGLOBIN A1C 10.1 % (4.5-6.2)
[2020-05-02] MEDS ORDERED: Magnesium Sulfate/Water 2 GM/50 ML BAG IV ONE (07:30)
[2020-05-02] MEDS: Insulin Aspart 100 Units/ML 3 ML Pen SUBCUT SCH ×2 (07:37→13:38)
[2020-05-02] MEDS ORDERED: Magnesium Sulfate/Water 2 GM/50 ML Premix Bag IV ONE (08:00)
--- NOTE | 2020-05-02 08:40 | PCM.HP.2 ---
H&P History of Present Illness - General Date of Service: 05/02/20 Admit Problem/Dx: Admission Diagnosis/Problem Admission Diagnosis/Problem Acute coronary syndrome Source of Information: Patient History Limitations: Reports: No Limitations - History of Present Illness Initial Comments - Free Text/Narative: 49-year-old female presents with left-sided chest pain. She has a PMH of HTN, asthma and DM type II. Patient reports having left-sided chest pain that started last night, lasted for 1-2 hours, pressure-like in nature, aggravated by movement and alleviated by rest. Pain was rated as a 5/10. She also reports having associated shortness of breath. She denies having any fevers, chills, sore throat, cough, nausea, vomiting, abdominal pain, diarrhea, blood in stool, blood in urine, numbness or tingling in extremities. In the ER, CBC unremarkable, creatinine 1.1, troponin was negative, COVID19 test negative, CXR and CT angio were unremarkable. Patient admitted for further evaluation and treatment. chest Pain Score (Numeric/FACES): 3 - Related Data Allergies/Adverse Reactions: Allergies Allergy/AdvReac Type Severity Reaction Status Date / Time No Known Allergies Allergy Verified 05/01/20 22:26 Home Medications: Home Meds Lisinopril/Hydrochlorothiazide [Lisinopril-HCTZ 10-12.5 MG] 1 tab PO DAILY 04/13/19 [History] lamoTRIgine [Lamictal XR] 200 mg PO DAILY 04/13/19 [History] metFORMIN [Glucophage XR] 1,500 tab PO DAILY 04/13/19 [History] FLUoxetine HCl [Prozac] 03/13/20 [History] Past Medical History HEENT History: Reports: None Other HEENT History: wears glasses Cardiovascular History: Reports: Hypertension Other Cardiovascular History: REports stress test in about October of this year after being hospitalized Respiratory History: Reports: Asthma Gastrointestinal History: Reports: GERD Other Gastrointestinal History: uses OTC treatment Other 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 History: Urinary urgency [employer] History: Reports: Musculoskeletal History: Reports: Back Pain, Chronic Other Musculoskeletal History: Chronic low back pain, hx: fracture Left foot Neurological History: Reports: Concussion, Vertigo Other Neuro History: Headaches, hx: Vertigo 'no problem currently' Psychiatric History: Reports: Anxiety, Depression Endocrine/Metabolic History: Reports: Diabetes, Type II, Obesity/BMI 30+ Other Endocrine/Metabolic History: Hypothyroidism Hematologic History: Reports: None Immunologic History: Reports: None - Infectious Disease History Infectious Disease History: Reports: Chicken Pox - Past Surgical History Head Surgeries/Procedures: Reports: None HEENT Surgical History: Reports: None Female Surgical History: Reports: Hysterectomy, Salpingo-Oophorectomy, Tubal Ligation Other Female Surgeries/Procedures: hx of bladder surgery Social & Family History - Family History Family Medical History: Noncontributory Cardiac: Reports: CAD, High Cholesterol, [place] Neurological: Reports: CVA - Tobacco Use Tobacco Use Status *Q: Never Tobacco User Second Hand Smoke Exposure: No - Caffeine Use Caffeine Use: Reports: None - Recreational Drug Use Recreational Drug Use: No H&P Review of Systems - Review of Systems: Review Of Systems: Comprehensive ROS is negative, except as noted in HPI. Exam - Exam Exam: See Below - Vital Signs Vital Signs: Last Vital Signs Temp 36.1 C 05/02/20 02:30 Pulse 74 05/02/20 02:30 Resp 17 05/02/20 02:30 BP 145/72 H 05/02/20 02:30 Pulse Ox 99 05/02/20 02:30 Weight: 116.891 kg - Exam General: Alert, Oriented, Cooperative, Other (NAD) HEENT: Conjunctiva Clear, EOMI, Hearing Intact, Pupils Equal, Pupils Reactive Neck: Supple, Trachea Midline Lungs: Clear to Auscultation, Normal Respiratory Effort Cardiovascular: Regular Rate, Regular Rhythm GI/Abdominal Exam: Normal Bowel Sounds, Soft, Non-Tender, No Distention Extremities: Normal Inspection, No Pedal Edema Skin: Warm, Dry, Intact Neurological: Cranial Nerves Intact, Strength Equal Bilateral, Normal Speech, Normal Tone Neuro Extensive - Mental Status: Alert, Oriented x3, Normal Mood/Affect Psychiatric: Alert, Normal Affect, Normal Mood - Patient Data Lab Results Last 24 hrs: Laboratory Results - last 24 hr 05/01/20 05/01/20 05/01/20 Range/Units 22:15 22:15 22:15 WBC 6.03 (4.0-11.0) K/uL RBC 5.09 (4.30-5.90) M/uL Hgb 15.1 (12.0-16.0) g/dL Hct 45.5 (36.0-46.0) % MCV 89.4 (80.0-98.0) fL MCH 29.7 (27.0-32.0) pg MCHC 33.2 (31.0-37.0) g/dL RDW Std Deviation 41.9 (28.0-62.0) fl RDW Coeff of Mamta 13 (11.0-15.0) % Plt Count 209 (150-400) K/uL MPV 10.10 (7.40-12.00) fL Neut % (Auto) 48.4 (48.0-80.0) % Lymph % (Auto) 42.3 H (16.0-40.0) % [place] % (Auto) 6.6 (0.0-15.0) % Eos % (Auto) 2.2 (0.0-7.0) % Baso % (Auto) 0.5 (0.0-1.5) % Neut # (Auto) 2.9 (1.4-5.7) K/uL Lymph # (Auto) 2.6 H (0.6-2.4) K/uL [place] # (Auto) 0.4 (0.0-0.8) K/uL Eos # (Auto) 0.1 (0.0-0.7) K/uL Baso # (Auto) 0.0 (0.0-0.1) K/uL Nucleated RBC % 0.0 /100WBC Nucleated RBCs # 0 K/uL D-Dimer, Quantitative 0.68 H (0.0-0.50) mg/L FEU Sodium 135 L (136-145) mmol/L Potassium 3.8 (3.5-5.1) mmol/L Chloride 99 (98-107) mmol/L Carbon Dioxide 26.2 (21.0-32.0) mmol/L BUN 15 (7.0-18.0) mg/dL Creatinine 1.1 H (0.6-1.0) mg/dL Est Cr Clr Drug Dosing 63.94 mL/min Estimated GFR (MDRD) 52.6 ml/min Glucose 352 H (74-106) mg/dL POC Glucose (60-110) mg/dL Hemoglobin A1c (4.5-6.2) % Calcium 9.4 (8.5-10.1) mg/dL Magnesium 1.7 L (1.8-2.4) mg/dL Total Bilirubin 0.3 (0.2-1.0) mg/dL AST 30 (15-37) IU/L ALT 57 (14-63) IU/L Alkaline Phosphatase 106 (46-116) U/L Troponin I < 0.050 (0.000-0.056) ng/mL B-Natriuretic Peptide (<100) PG/ML Total Protein 7.6 (6.4-8.2) g/dL Albumin 3.7 (3.4-5.0) g/dL Globulin 3.9 (2.6-4.0) g/dL Albumin/Globulin Ratio 0.9 (0.9-1.6) SARS-CoV-2 RNA ([facility]MAY) (NEGATIVE) 05/01/20 05/02/20 05/02/20 Range/Units 22:15 00:45 02:52 WBC (4.0-11.0) K/uL RBC (4.30-5.90) M/uL Hgb (12.0-16.0) g/dL Hct (36.0-46.0) % MCV (80.0-98.0) fL MCH (27.0-32.0) pg MCHC (31.0-37.0) g/dL RDW Std Deviation (28.0-62.0) fl RDW Coeff of Mamta (11.0-15.0) % Plt Count (150-400) K/uL MPV (7.40-12.00) fL Neut % (Auto) (48.0-80.0) % Lymph % (Auto) (16.0-40.0) % [place] % (Auto) (0.0-15.0) % Eos % (Auto) (0.0-7.0) % Baso % (Auto) (0.0-1.5) % Neut # (Auto) (1.4-5.7) K/uL Lymph # (Auto) (0.6-2.4) K/uL [place] # (Auto) (0.0-0.8) K/uL Eos # (Auto) (0.0-0.7) K/uL Baso # (Auto) (0.0-0.1) K/uL Nucleated RBC % /100WBC Nucleated RBCs # K/uL D-Dimer, Quantitative (0.0-0.50) mg/L FEU Sodium (136-145) mmol/L Potassium (3.5-5.1) mmol/L Chloride (98-107) mmol/L Carbon Dioxide (21.0-32.0) mmol/L BUN (7.0-18.0) mg/dL Creatinine (0.6-1.0) mg/dL Est Cr Clr Drug Dosing mL/min Estimated GFR (MDRD) ml/min Glucose (74-106) mg/dL POC Glucose 206 H (60-110) mg/dL Hemoglobin A1c (4.5-6.2) % Calcium (8.5-10.1) mg/dL Magnesium (1.8-2.4) mg/dL Total Bilirubin (0.2-1.0) mg/dL AST (15-37) IU/L ALT (14-63) IU/L Alkaline Phosphatase (46-116) U/L Troponin I (0.000-0.056) ng/mL B-Natriuretic Peptide 26 (<100) PG/ML Total Protein (6.4-8.2) g/dL Albumin (3.4-5.0) g/dL Globulin (2.6-4.0) g/dL Albumin/Globulin Ratio (0.9-1.6) SARS-CoV-2 RNA (TANMAY) NEGATIVE (NEGATIVE) 05/02/20 05/02/20 05/02/20 Range/Units 05:30 05:30 06:32 WBC (4.0-11.0) K/uL RBC (4.30-5.90) M/uL Hgb (12.0-16.0) g/dL Hct (36.0-46.0) % MCV (80.0-98.0) fL MCH (27.0-32.0) pg MCHC (31.0-37.0) g/dL RDW Std Deviation (28.0-62.0) fl RDW Coeff of Mamta (11.0-15.0) % Plt Count (150-400) K/uL MPV (7.40-12.00) fL Neut % (Auto) (48.0-80.0) % Lymph % (Auto) (16.0-40.0) % [place] % (Auto) (0.0-15.0) % Eos % (Auto) (0.0-7.0) % Baso % (Auto) (0.0-1.5) % Neut # (Auto) (1.4-5.7) K/uL Lymph # (Auto) (0.6-2.4) K/uL [place] # (Auto) (0.0-0.8) K/uL Eos # (Auto) (0.0-0.7) K/uL Baso # (Auto) (0.0-0.1) K/uL Nucleated RBC % /100WBC Nucleated RBCs # K/uL D-Dimer, Quantitative (0.0-0.50) mg/L FEU Sodium (136-145) mmol/L Potassium (3.5-5.1) mmol/L Chloride (98-107) mmol/L Carbon Dioxide (21.0-32.0) mmol/L BUN (7.0-18.0) mg/dL Creatinine (0.6-1.0) mg/dL Est Cr Clr Drug Dosing mL/min Estimated GFR (MDRD) ml/min Glucose (74-106) mg/dL POC Glucose 191 H (60-110) mg/dL Hemoglobin A1c 10.1 H (4.5-6.2) % Calcium (8.5-10.1) mg/dL Magnesium (1.8-2.4) mg/dL Total Bilirubin (0.2-1.0) mg/dL AST (15-37) IU/L ALT (14-63) IU/L Alkaline Phosphatase (46-116) U/L Troponin I < 0.050 (0.000-0.056) ng/mL B-Natriuretic Peptide (<100) PG/ML Total Protein (6.4-8.2) g/dL Albumin (3.4-5.0) g/dL Globulin (2.6-4.0) g/dL Albumin/Globulin Ratio (0.9-1.6) SARS-CoV-2 RNA ([facility]MAY) (NEGATIVE) Result Diagrams: 05/01/20 22:15 05/01/20 22:15 Sepsis Event Note - Evaluation Sepsis Screening Result: No Definite Risk - Focused Exam Vital Signs: Vital Signs Temp Pulse Resp BP Pulse Ox 05/02/20 02:30 36.1 C 74 17 145/72 H 99 05/02/20 02:22 35.7 C L 70 18 152/88 H 98 05/02/20 01:02 76 16 148/77 H 97 05/02/20 00:31 74 16 146/80 H 97 05/01/20 23:02 79 16 160/78 H 97 05/01/20 22:27 36.4 C 82 20 163/84 H 96 - Problem List (1) Chest pain SNOMED Code(s): 69717822 ICD Code: R07.9 - CHEST PAIN, UNSPECIFIED Status: Acute Current Visit: Yes (2) Diabetes SNOMED Code(s): 69385894 ICD Code: E11.9 - TYPE 2 DIABETES MELLITUS WITHOUT COMPLICATIONS Status: Acute Current Visit: Yes (3) Hypertension SNOMED Code(s): 78989942 ICD Code: I10 - ESSENTIAL (PRIMARY) HYPERTENSION Status: Acute Current Visit: Yes (4) Asthma SNOMED Code(s): 797507383 ICD Code: J45.909 - UNSPECIFIED ASTHMA, UNCOMPLICATED Status: Acute Current Visit: No Problem List Initiated/Reviewed/Updated: Yes Orders Last 24hrs: Active Orders 24 hr Category Date Time Status Patient Status [ADT] Routine ADT 05/02/20 00:38 Active Antiembolic Devices [RC] PER UNIT ROUTINE Care 05/02/20 02:38 Active Blood Glucose Check, Bedside [RC] TIDMEALS Care 05/02/20 02:37 Active Influenza Vaccine Charge [RC] .DISCHARGE Care 05/02/20 02:33 Active Oxygen Therapy [RC] PRN Care 05/02/20 02:38 Active Up ad [place] [RC] ASDIRECTED Care 05/02/20 02:37 Active VTE/DVT Education [RC] PER UNIT ROUTINE Care 05/02/20 02:38 Active Vital Signs [RC] Q4H Care 05/02/20 02:38 Active [place] [employer] Diet [DIET] Diet 05/02/20 Breakfast Active TROPONIN I [CHEM] Q6H Lab 05/02/20 11:00 Ordered Acetaminophen [TylenoL] Med 05/02/20 02:37 Active 650 mg PO Q4H PRN Dextrose 50% in Water Med 05/02/20 02:38 Active 50 ml IV ASDIRECTED PRN FLU Vacc [id number] 36MOS UP/PF [Afluria Quad 2020- ( Med 05/02/20 10:00 Once 3YR UP)] 60 mcg IM .ONCE ONE Glucagon,Human Recombinant [GlucaGen] Med 05/02/20 02:38 Active 1 mg IM ASDIRECTED PRN Insulin Aspart [NovoLOG] Med 05/02/20 07:30 Active See Protocol SUBCUT TIDAC Lisinopril/Hydrochlorothiazide [Lisinopril-HCTZ 10-12.5 Med 05/02/20 09:00 Active MG] 1 tab PO DAILY Sodium Chloride 0.9% [Saline Flush] Med 05/01/20 22:27 Active 10 ml FLUSH ASDIRECTED PRN Sodium Chloride 0.9% [Saline Flush] Med 05/01/20 22:27 Active 2.5 ml FLUSH ASDIRECTED PRN Saline Lock Insert [OM.PC] Stat Oth 05/01/20 22:27 Ordered Sequential Compression Device [OM.PC] Per Unit Routine Oth 05/02/20 02:38 Ordered Resuscitation Status Routine Resus Stat 05/02/20 02:37 Ordered Medication Orders Acetaminophen (Tylenol) 650 mg PO Q4H PRN PRN Reason: Pain (Mild 1-3)/fever Last Admin: 05/02/20 03:01 Dose: 650 mg Documented by: JOSE Dextrose/Water (Dextrose 50% In Water) 50 ml IV ASDIRECTED PRN PRN Reason: Hypoglycemia Glucagon (Glucagen) 1 mg IM ASDIRECTED PRN PRN Reason: Hypoglycemia Lisinopril/HCTZ (Lisinopril-Hctz 10-12.5 Mg) 1 tab PO DAILY MAYURI Influenza Virus Vaccine (Afluria Quad 2020- (3yr Up)) 60 mcg IM .ONCE ONE Stop: 05/02/20 10:01 Insulin Aspart (Novolog) 0 unit SUBCUT TIDAC MAYURI; Protocol Last Admin: 05/02/20 07:37 Dose: 1 units Documented by: JOSE Sodium Chloride (Saline Flush) 10 ml FLUSH ASDIRECTED PRN PRN Reason: Keep Vein Open Last Admin: 05/01/20 23:02 Dose: 10 ml Documented by: ZAIRE Sodium Chloride (Saline Flush) 2.5 ml FLUSH ASDIRECTED PRN PRN Reason: Keep Vein Open Last Admin: 05/01/20 23:02 Dose: 2.5 ml Documented by: [id number] Assessment/Plan Comment:: Assessment and Plan: 1. Chest pain, ACS rule out: - Admit to med/surg. Patient on telemetry. EKG unremarkable. Patient denies any chest pain currently. Will trend troponins q6h x 3. 2. DARYN, mild: - Patient given 1 L IV NS bolus in ER. 3. Diabetes mellitus type II: - HgbA1c is 10.1. Start ADA diet, novolog SSI and accuchecks TIDAC. Consult diabetic education to start insulin. 4. DVT prophylaxis: - SCD's. 5. Past medical history of HTN and asthma: - Continue home medications.
[2020-05-02] MEDS ORDERED: Lisinopril/Hydrochlorothiazide 10-12.5 MG Tab PO SCH (09:00)
[2020-05-02] MEDS ORDERED: FLU Vacc QS2020-21 36MOS UP/PF 60 MCG/0.5 ML Syringe IM ONE (10:00)
[2020-05-02 14:34] VITALS: BP 124/59; PULSE 73
--- NOTE | 2020-05-02 15:36 | PCM.DCSUM1 ---
Discharge Summary - Hospital Course Free Text/Narrative:: 49-year-old female admitted for chest pain. She has a PMH of HTN, asthma and DM type II. CXR and CT angio were unremarkable. COVID19 test negative. Troponins were trended and were negative. Telemetry showed no overnight events. Patient had complete resolution of her symptoms. Patient's HgbA1c was 10.1. Diabetic education consulted and patient started on Toujeo 10 units subcut qd and metformin was resumed. Patient may require stress test as an outpatient. She was discharged in stable condition and advised to follow-up with PCP on discharge. - Discharge Data Discharge Date: 05/02/20 Discharge Disposition: Home, Self-Care 01 Condition: Stable - Referral to Home Health Primary Care Physician: Nitesh Ward MD - Discharge Diagnosis/Problem(s) (1) Chest pain SNOMED Code(s): 89025429 ICD Code: R07.9 - CHEST PAIN, UNSPECIFIED Status: Acute Current Visit: Yes (2) Diabetes SNOMED Code(s): 92091480 ICD Code: E11.9 - TYPE 2 DIABETES MELLITUS WITHOUT COMPLICATIONS Status: Acute Current Visit: Yes (3) Hypertension SNOMED Code(s): 87342457 ICD Code: I10 - ESSENTIAL (PRIMARY) HYPERTENSION Status: Acute Current Visit: Yes (4) Asthma SNOMED Code(s): 455853623 ICD Code: J45.909 - UNSPECIFIED ASTHMA, UNCOMPLICATED Status: Acute Current Visit: No - Patient Summary/Data Consults: Consultations 05/02/20 09:35 Consult to DM [Consult to Diabetic Nurse Specialist] [CONS] Routine - Patient Instructions Diet: Diabetic Diet Activity: As Tolerated Notify Provider of: Fever, Increased Pain, Swelling and Redness, Drainage, Nausea and/or Vomiting - Discharge Plan *PRESCRIPTION DRUG MONITORING PROGRAM REVIEWED*: Not Applicable *COPY OF PRESCRIPTION DRUG MONITORING REPORT IN PATIENT MIREYA: Not Applicable Prescriptions/Med Rec: Pen Needle, Diabetic [Pen [place]] 1 each MC DAILY 30 Days #30 dis.needle Insulin Glargine,Hum.Rec.Anlog [Toujeo Solostar] 10 unit SQ BEDTIME 30 Days #1 insuln.pen Home Medications: Home Meds Lisinopril/Hydrochlorothiazide [Lisinopril-HCTZ 10-12.5 MG] 10 - 12.5 mg PO DAILY 04/13/19 [History] metFORMIN [Glucophage XR] 1,500 tab PO DAILY 04/13/19 [History] Insulin Glargine,Hum.Rec.Anlog [[place]] 10 unit SQ BEDTIME 30 Days #1 insuln.pen 05/02/20 [Rx] Pen Needle, Diabetic [Pen [place]] 1 each MC DAILY 30 Days #30 dis.needle 05/02/20 [Rx] Venlafaxine HCl [Venlafaxine ER] 150 mg PO DAILY 05/02/20 [History] lamoTRIgine [Lamotrigine] 200 mg PO DAILY 05/02/20 [History] Oxygen Therapy Mode: Room Air Patient Handouts: Acute Coronary Syndrome Forms: ED Department Discharge Referrals: Nitesh Ward MD [Primary Care Provider] - 05/10/20 9:30 am - Discharge Summary/Plan Comment DC Time >30 min.: No - Patient Data Vitals - Most Recent: Last Vital Signs Temp 36.6 C 05/02/20 12:00 Pulse 73 05/02/20 12:00 Resp 16 05/02/20 12:00 BP 124/59 L 05/02/20 12:00 Pulse Ox 96 05/02/20 12:00 Weight - Most Recent: 116.891 kg Lab Results - Last 24 hrs: Laboratory Results - last 24 hr 05/01/20 05/01/20 05/01/20 Range/Units 22:15 22:15 22:15 WBC 6.03 (4.0-11.0) K/uL RBC 5.09 (4.30-5.90) M/uL Hgb 15.1 (12.0-16.0) g/dL Hct 45.5 (36.0-46.0) % MCV 89.4 (80.0-98.0) fL MCH 29.7 (27.0-32.0) pg MCHC 33.2 (31.0-37.0) g/dL RDW Std Deviation 41.9 (28.0-62.0) fl RDW Coeff of Mamta 13 (11.0-15.0) % Plt Count 209 (150-400) K/uL MPV 10.10 (7.40-12.00) fL Neut % (Auto) 48.4 (48.0-80.0) % Lymph % (Auto) 42.3 H (16.0-40.0) % [place] % (Auto) 6.6 (0.0-15.0) % Eos % (Auto) 2.2 (0.0-7.0) % Baso % (Auto) 0.5 (0.0-1.5) % Neut # (Auto) 2.9 (1.4-5.7) K/uL Lymph # (Auto) 2.6 H (0.6-2.4) K/uL [place] # (Auto) 0.4 (0.0-0.8) K/uL Eos # (Auto) 0.1 (0.0-0.7) K/uL Baso # (Auto) 0.0 (0.0-0.1) K/uL Nucleated RBC % 0.0 /100WBC Nucleated RBCs # 0 K/uL D-Dimer, Quantitative 0.68 H (0.0-0.50) mg/L FEU Sodium 135 L (136-145) mmol/L Potassium 3.8 (3.5-5.1) mmol/L Chloride 99 (98-107) mmol/L Carbon Dioxide 26.2 (21.0-32.0) mmol/L BUN 15 (7.0-18.0) mg/dL Creatinine 1.1 H (0.6-1.0) mg/dL Est Cr Clr Drug Dosing 63.94 mL/min Estimated GFR (MDRD) 52.6 ml/min Glucose 352 H (74-106) mg/dL POC Glucose (60-110) mg/dL Hemoglobin A1c (4.5-6.2) % Calcium 9.4 (8.5-10.1) mg/dL Magnesium 1.7 L (1.8-2.4) mg/dL Total Bilirubin 0.3 (0.2-1.0) mg/dL AST 30 (15-37) IU/L ALT 57 (14-63) IU/L Alkaline Phosphatase 106 (46-116) U/L Troponin I < 0.050 (0.000-0.056) ng/mL B-Natriuretic Peptide (<100) PG/ML Total Protein 7.6 (6.4-8.2) g/dL Albumin 3.7 (3.4-5.0) g/dL Globulin 3.9 (2.6-4.0) g/dL Albumin/Globulin Ratio 0.9 (0.9-1.6) SARS-CoV-2 RNA ([facility]) (NEGATIVE) 05/01/20 05/02/20 05/02/20 Range/Units 22:15 00:45 02:52 WBC (4.0-11.0) K/uL RBC (4.30-5.90) M/uL Hgb (12.0-16.0) g/dL Hct (36.0-46.0) % MCV (80.0-98.0) fL MCH (27.0-32.0) pg MCHC (31.0-37.0) g/dL RDW Std Deviation (28.0-62.0) fl RDW Coeff of Mamta (11.0-15.0) % Plt Count (150-400) K/uL MPV (7.40-12.00) fL Neut % (Auto) (48.0-80.0) % Lymph % (Auto) (16.0-40.0) % [place] % (Auto) (0.0-15.0) % Eos % (Auto) (0.0-7.0) % Baso % (Auto) (0.0-1.5) % Neut # (Auto) (1.4-5.7) K/uL Lymph # (Auto) (0.6-2.4) K/uL [place] # (Auto) (0.0-0.8) K/uL Eos # (Auto) (0.0-0.7) K/uL Baso # (Auto) (0.0-0.1) K/uL Nucleated RBC % /100WBC Nucleated RBCs # K/uL D-Dimer, Quantitative (0.0-0.50) mg/L FEU Sodium (136-145) mmol/L Potassium (3.5-5.1) mmol/L Chloride (98-107) mmol/L Carbon Dioxide (21.0-32.0) mmol/L BUN (7.0-18.0) mg/dL Creatinine (0.6-1.0) mg/dL Est Cr Clr Drug Dosing mL/min Estimated GFR (MDRD) ml/min Glucose (74-106) mg/dL POC Glucose 206 H (60-110) mg/dL Hemoglobin A1c (4.5-6.2) % Calcium (8.5-10.1) mg/dL Magnesium (1.8-2.4) mg/dL Total Bilirubin (0.2-1.0) mg/dL AST (15-37) IU/L ALT (14-63) IU/L Alkaline Phosphatase (46-116) U/L Troponin I (0.000-0.056) ng/mL B-Natriuretic Peptide 26 (<100) PG/ML Total Protein (6.4-8.2) g/dL Albumin (3.4-5.0) g/dL Globulin (2.6-4.0) g/dL Albumin/Globulin Ratio (0.9-1.6) SARS-CoV-2 RNA (T[facility]MAY) NEGATIVE (NEGATIVE) 05/02/20 05/02/20 05/02/20 Range/Units 05:30 05:30 06:32 WBC (4.0-11.0) K/uL RBC (4.30-5.90) M/uL Hgb (12.0-16.0) g/dL Hct (36.0-46.0) % MCV (80.0-98.0) fL MCH (27.0-32.0) pg MCHC (31.0-37.0) g/dL RDW Std Deviation (28.0-62.0) fl RDW Coeff of Mamta (11.0-15.0) % Plt Count (150-400) K/uL MPV (7.40-12.00) fL Neut % (Auto) (48.0-80.0) % Lymph % (Auto) (16.0-40.0) % [place] % (Auto) (0.0-15.0) % Eos % (Auto) (0.0-7.0) % Baso % (Auto) (0.0-1.5) % Neut # (Auto) (1.4-5.7) K/uL Lymph # (Auto) (0.6-2.4) K/uL [place] # (Auto) (0.0-0.8) K/uL Eos # (Auto) (0.0-0.7) K/uL Baso # (Auto) (0.0-0.1) K/uL Nucleated RBC % /100WBC Nucleated RBCs # K/uL D-Dimer, Quantitative (0.0-0.50) mg/L FEU Sodium (136-145) mmol/L Potassium (3.5-5.1) mmol/L Chloride (98-107) mmol/L Carbon Dioxide (21.0-32.0) mmol/L BUN (7.0-18.0) mg/dL Creatinine (0.6-1.0) mg/dL Est Cr Clr Drug Dosing mL/min Estimated GFR (MDRD) ml/min Glucose (74-106) mg/dL POC Glucose 191 H (60-110) mg/dL Hemoglobin A1c 10.1 H (4.5-6.2) % Calcium (8.5-10.1) mg/dL Magnesium (1.8-2.4) mg/dL Total Bilirubin (0.2-1.0) mg/dL AST (15-37) IU/L ALT (14-63) IU/L Alkaline Phosphatase (46-116) U/L Troponin I < 0.050 (0.000-0.056) ng/mL B-Natriuretic Peptide (<100) PG/ML Total Protein (6.4-8.2) g/dL Albumin (3.4-5.0) g/dL Globulin (2.6-4.0) g/dL Albumin/Globulin Ratio (0.9-1.6) SARS-CoV-2 RNA ([facility]MAY) (NEGATIVE) 05/02/20 05/02/20 Range/Units 11:24 13:31 WBC (4.0-11.0) K/uL RBC (4.30-5.90) M/uL Hgb (12.0-16.0) g/dL Hct (36.0-46.0) % MCV (80.0-98.0) fL MCH (27.0-32.0) pg MCHC (31.0-37.0) g/dL RDW Std Deviation (28.0-62.0) fl RDW Coeff of Mamta (11.0-15.0) % Plt Count (150-400) K/uL MPV (7.40-12.00) fL Neut % (Auto) (48.0-80.0) % Lymph % (Auto) (16.0-40.0) % [place] % (Auto) (0.0-15.0) % Eos % (Auto) (0.0-7.0) % Baso % (Auto) (0.0-1.5) % Neut # (Auto) (1.4-5.7) K/uL Lymph # (Auto) (0.6-2.4) K/uL [place] # (Auto) (0.0-0.8) K/uL Eos # (Auto) (0.0-0.7) K/uL Baso # (Auto) (0.0-0.1) K/uL Nucleated RBC % /100WBC Nucleated RBCs # K/uL D-Dimer, Quantitative (0.0-0.50) mg/L FEU Sodium (136-145) mmol/L Potassium (3.5-5.1) mmol/L Chloride (98-107) mmol/L Carbon Dioxide (21.0-32.0) mmol/L BUN (7.0-18.0) mg/dL Creatinine (0.6-1.0) mg/dL Est Cr Clr Drug Dosing mL/min Estimated GFR (MDRD) ml/min Glucose (74-106) mg/dL POC Glucose 262 H (60-110) mg/dL Hemoglobin A1c (4.5-6.2) % Calcium (8.5-10.1) mg/dL Magnesium (1.8-2.4) mg/dL Total Bilirubin (0.2-1.0) mg/dL AST (15-37) IU/L ALT (14-63) IU/L Alkaline Phosphatase (46-116) U/L Troponin I < 0.050 (0.000-0.056) ng/mL B-Natriuretic Peptide (<100) PG/ML Total Protein (6.4-8.2) g/dL Albumin (3.4-5.0) g/dL Globulin (2.6-4.0) g/dL Albumin/Globulin Ratio (0.9-1.6) SARS-CoV-2 RNA ([facility]ANMAY) (NEGATIVE) Med Orders - Current: Current Medications Acetaminophen (Tylenol) 650 mg PO Q4H PRN PRN Reason: Pain (Mild 1-3)/fever Last Admin: 05/02/20 03:01 Dose: 650 mg Documented by: Dextrose/Water (Dextrose 50% In Water) 50 ml IV ASDIRECTED PRN PRN Reason: Hypoglycemia Glucagon (Glucagen) 1 mg IM ASDIRECTED PRN PRN Reason: Hypoglycemia Lisinopril/HCTZ (Lisinopril-Hctz 10-12.5 Mg) 1 tab PO DAILY [facility] Last Admin: 05/02/20 09:29 Dose: 1 tab Documented by: Insulin Aspart (Novolog) 0 unit SUBCUT TIDAC [facility]; Protocol Last Admin: 05/02/20 13:38 Dose: 3 units Documented by: Sodium Chloride (Saline Flush) 10 ml FLUSH ASDIRECTED PRN PRN Reason: Keep Vein Open Last Admin: 05/01/20 23:02 Dose: 10 ml Documented by: Sodium Chloride (Saline Flush) 2.5 ml FLUSH ASDIRECTED PRN PRN Reason: Keep Vein Open Last Admin: 05/01/20 23:02 Dose: 2.5 ml Documented by: Discontinued Medications Aspirin (Aspirin) 324 mg PO ONETIME ONE Stop: 05/01/20 22:28 Last Admin: 05/01/20 22:36 Dose: 324 mg Documented by: Sodium Chloride (Normal Saline) 1,000 mls @ 999 mls/hr IV .Bolus ONE Stop: 05/01/20 23:27 Last Admin: 05/01/20 22:36 Dose: 999 mls/hr Documented by: Magnesium Sulfate (Magnesium Sulfate In Water Premix) 2 gm in 50 mls @ 50 mls/hr IV ONETIME ONE Stop: 05/02/20 08:29 Last Admin: 05/02/20 07:47 Dose: 50 mls/hr Documented by: Influenza Virus Vaccine (Pharmacy To Dose - Influenza Vaccine) 1 each IM ONETIME ONE Stop: 05/02/20 02:33 Influenza Virus Vaccine (Afluria Quad 2020-21 (3yr Up)) 60 mcg IM .ONCE ONE Stop: 05/02/20 10:01 Iopamidol (Isovue Multipack-370 (76%)) 100 ml IVPUSH ONETIME STA Stop: 05/01/20 23:50 Last Admin: 05/01/20 23:49 Dose: 100 ml Documented by:
== END 2020-05-02 16:39 | disposition home or self-care (01) ==
LOC: MW.ED 22:11 → MW.MS 05-02 00:38
PROVIDERS: ADMIT Internal Medicine; ATTEND Internal Medicine
DX: R07.9 Chest pain, unspecified (principal); E11.9 Type 2 diabetes mellitus without complications; I10 Essential (primary) hypertension; J45.909 Unspecified asthma, uncomplicated; F41.9 Anxiety disorder, unspecified; F32.9 Major depressive disorder, single episode, unspecified; E03.9 Hypothyroidism, unspecified; E66.9 Obesity, unspecified; N17.9 Acute kidney failure, unspecified; Z20.828 Contact with and (suspected) exposure to other viral communicable diseases; Z79.899 Other long term (current) drug therapy; Z79.84 Long term (current) use of oral hypoglycemic drugs; Z98.890 Other specified postprocedural states; Z68.38 Body mass index [BMI] 38.0-38.9, adult
CPT/HCPCS: 36415; 71045; 71275; 80053; 82962; 83036; 83735; 83880; 84484; 85025; 85379; 87635; 93005; 96374; A9270; G0378; J1815; J3475; J7030; Q9967; 93010; 99283; 99285-25; U0002

== ENCOUNTER 2020-07-14 18:10 | Emergency (ER) | payer MEDICAID ==
--- NOTE | 2020-07-14 18:30 | EDM.PDOC ---
ED HPI GENERAL MEDICAL PROBLEM - General Chief Complaint: Diabetic Complaint Stated Complaint: EMS ARRIVAL Time Seen by Provider: 07/14/20 18:17 Source of Information: Reports: Patient History Limitations: Reports: No Limitations - History of Present Illness INITIAL COMMENTS - FREE TEXT/NARRATIVE: Is a 50-year-old female who presents today for possible hypoglycemia. Patient states she was driving the car which he felt kind of tired she thought her sugar may be getting low. She did not have a device wanted to check her sugar she went to her daughter's also has food so she did not immediately feel better so she called an hour when he came to the ED. Patient denies using any more of her insulin than she normally does. Patient states that she may have not eaten as much. When patient arrived patient sugar was 288. Patient denies any fever chills but does complain of a headache. Patient denies any neurological symptoms such as change in speech or vision or sensation. - Related Data Allergies Allergy/AdvReac Type Severity Reaction Status Date / Time No Known Allergies Allergy Verified 07/14/20 18:18 Home Meds: Home Meds Lisinopril/Hydrochlorothiazide [Lisinopril-HCTZ 10-12.5 MG] 10 - 12.5 mg PO DAILY 04/13/19 [History] metFORMIN [Glucophage XR] 1,500 tab PO DAILY 04/13/19 [History] Insulin Glargine,Hum.Rec.Anlog [Toukristian Solostar] 10 unit SQ BEDTIME 30 Days #1 insuln.pen 05/02/20 [Rx] Pen Needle, Diabetic [Pen [place]] 1 each MC DAILY 30 Days #30 dis.needle 05/02/20 [Rx] Venlafaxine HCl [Venlafaxine ER] 150 mg PO DAILY 05/02/20 [History] lamoTRIgine [Lamotrigine] 200 mg PO DAILY 05/02/20 [History] Past Medical History HEENT History: Reports: None Other HEENT History: wears glasses Cardiovascular History: Reports: Hypertension Other Cardiovascular History: REports stress test in about October of this year after being hospitalized Respiratory History: Reports: Asthma Gastrointestinal History: Reports: GERD Other Gastrointestinal History: uses OTC treatment Other 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 History: Urinary urgency 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: Musculoskeletal History: Reports: Back Pain, Chronic Other Musculoskeletal History: Chronic low back pain, hx: fracture Left foot Neurological History: Reports: Concussion, Vertigo Other Neuro History: Headaches, hx: Vertigo 'no problem currently' Psychiatric History: Reports: Anxiety, Depression Endocrine/Metabolic History: Reports: Diabetes, Type II, Obesity/BMI 30+ Other Endocrine/Metabolic History: Hypothyroidism Hematologic History: Reports: None Immunologic History: Reports: None - Infectious Disease History Infectious Disease History: Reports: Chicken Pox - Past Surgical History Head Surgeries/Procedures: Reports: None HEENT Surgical History: Reports: None Other HEENT Surgeries/Procedures: [place] teeth Female Surgical History: Reports: Hysterectomy, Salpingo-Oophorectomy, Tubal Ligation Other Female Surgeries/Procedures: hx of bladder surgery Social & Family History - Family History Family Medical History: No Pertinent Family History Cardiac: Reports: CAD, High Cholesterol, [place] Neurological: Reports: CVA - Caffeine Use Caffeine Use: Reports: None ED ROS GENERAL - Review of Systems Review Of Systems: Comprehensive ROS is negative, except as noted in HPI. ED EXAM GENERAL NO PERIP PULSE - Physical Exam Exam: See Below Exam Limited By: No Limitations General Appearance: Alert, WD/WN Eye Exam: Bilateral Eye: EOMI, PERRL Respiratory/Chest: No Respiratory Distress, Lungs Clear Cardiovascular: Normal Peripheral Pulses, Regular Rate, Rhythm GI/Abdominal: Normal Bowel Sounds, Soft, Non-Tender Extremities: Normal Inspection, Normal Range of Motion Neurological: Alert, Oriented, CN II-XII Intact, Normal Cognition Course - Vital Signs Last Recorded V/S: Last Vital Signs Temp 97.2 F 07/14/20 18:15 Pulse 96 07/14/20 18:15 Resp 20 07/14/20 18:15 BP 127/75 07/14/20 18:15 Pulse Ox 99 07/14/20 18:15 - Orders/Labs/Meds Orders: Active Orders 24 hr Category Date Time Status Head wo Cont [CT] Stat Exams 07/14/20 18:27 Ordered COMPREHENSIVE METABOLIC PN,CMP [CHEM] Stat Lab 07/14/20 18:13 Received ETHANOL BLOOD MEDICAL [CHEM] Stat Lab 07/14/20 18:13 Received MAGNESIUM [CHEM] Stat Lab 07/14/20 18:13 Received PHOSPHORUS [CHEM] Stat Lab 07/14/20 18:13 Received UA W/HERNESTO RFLX IF INDICATED [URIN] Stat Lab 07/14/20 18:26 Ordered Labs: Laboratory Tests 07/14/20 Range/Units 18:13 WBC 5.64 (4.0-11.0) K/uL RBC 4.65 (4.30-5.90) M/uL Hgb 13.9 (12.0-16.0) g/dL Hct 41.3 (36.0-46.0) % MCV 88.8 (80.0-98.0) fL MCH 29.9 (27.0-32.0) pg MCHC 33.7 (31.0-37.0) g/dL RDW Std Deviation 43.6 (28.0-62.0) fl RDW Coeff of Mamta 14 (11.0-15.0) % Plt Count 216 (150-400) K/uL MPV 9.90 (7.40-12.00) fL Neut % (Auto) 50.2 (48.0-80.0) % Lymph % (Auto) 38.5 (16.0-40.0) % [place] % (Auto) 8.5 (0.0-15.0) % Eos % (Auto) 2.1 (0.0-7.0) % Baso % (Auto) 0.7 (0.0-1.5) % Neut # (Auto) 2.8 (1.4-5.7) K/uL Lymph # (Auto) 2.2 (0.6-2.4) K/uL [place] # (Auto) 0.5 (0.0-0.8) K/uL Eos # (Auto) 0.1 (0.0-0.7) K/uL Baso # (Auto) 0.0 (0.0-0.1) K/uL Nucleated RBC % 0.0 /100WBC Nucleated RBCs # 0 K/uL - Re-Assessments/Exams Free Text/Narrative Re-Assessment/Exam: 07/14/20 18:48 Patient will be signed out to oncoming attending. CT and labs are still pending. Departure - Departure Time of Disposition: 18:48 Disposition: Still A Patient 30 Condition: Good Clinical Impression: Hypoglycemia - Discharge Information *PRESCRIPTION DRUG MONITORING PROGRAM REVIEWED*: Not Applicable *COPY OF PRESCRIPTION DRUG MONITORING REPORT IN PATIENT MIREYA: Not Applicable Forms: ED Department Discharge Sepsis Event Note (ED) - Evaluation Sepsis Screening Result: No Definite Risk - Focused Exam Vital Signs: Vital Signs Temp Pulse Resp BP Pulse Ox 07/14/20 18:15 97.2 F 96 20 127/75 99 - My Orders Last 24 Hours: My Active Orders 07/14/20 18:13 COMPREHENSIVE METABOLIC PN,CMP [CHEM] Stat ETHANOL BLOOD MEDICAL [CHEM] Stat MAGNESIUM [CHEM] Stat PHOSPHORUS [CHEM] Stat 07/14/20 18:26 UA W/HERNESTO RFLX IF INDICATED [URIN] Stat 07/14/20 18:27 Head wo Cont [CT] Stat - Assessment/Plan Last 24 Hours: My Active Orders 07/14/20 18:13 COMPREHENSIVE METABOLIC PN,CMP [CHEM] Stat ETHANOL BLOOD MEDICAL [CHEM] Stat MAGNESIUM [CHEM] Stat PHOSPHORUS [CHEM] Stat 07/14/20 18:26 UA W/HERNESTO RFLX IF INDICATED [URIN] Stat 07/14/20 18:27 Head wo Cont [CT] Stat Assessment:: Is a 50-year-old female presents today for what she thought was hypoglycemia. Patient dates she is 1 by her daughter thousand have flu but still felt tired like her sugar was low she decided to come to the ED. Patient sugar is 288. Patient is awake but does seem sleepy on exam but has no neurological deficits. Will obtain labs CT head and reassess.
[2020-07-14 18:48] LABS: BLOOD UREA NITROGEN,BUN 14 mg/dL (7.0-18.0); CARBON DIOXIDE,CO2 25.3 mmol/L (21.0-32.0); CHLORIDE,CL 101 mmol/L (98-107); GLUCOSE RANDOM 307 mg/dL (74-106); POTASSIUM,K 4.1 mmol/L (3.5-5.1); SODIUM,NA 136 mmol/L (136-145)
--- NOTE | 2020-07-14 19:17 | CT ---
INDICATION: Headache, hypoglycemia TECHNIQUE: CT head without contrast. COMPARISON: None FINDINGS: CSF spaces: Within normal limits for age. Brain parenchyma: The bryant-white differentiation is normal. No sign of mass, hemorrhage, or midline shift. Skull base and calvarium: The visualized paranasal sinuses and mastoid air cells demonstrate no acute or significant findings. The visualized orbits are grossly unremarkable. No skull fractures. IMPRESSION: Unremarkable noncontrast head CT. Please note that all CT scans at this facility use dose modulation, iterative reconstruction, and/or weight-based dosing when appropriate to reduce radiation dose to as low as reasonably achievable. Dictated by Shi Galo MD @ Jul 14 2020 7:13PM Signed by Dr. Shi Galo @ Jul 14 2020 7:16PM
--- NOTE | 2020-07-14 20:21 | EDM.PDOC ---
ED HPI GENERAL MEDICAL PROBLEM - General Chief Complaint: Diabetic Complaint Stated Complaint: EMS ARRIVAL Time Seen by Provider: 07/14/20 18:17 Source of Information: Reports: Patient History Limitations: Reports: No Limitations - History of Present Illness INITIAL COMMENTS - FREE TEXT/NARRATIVE: Is a 50-year-old female who presents today for possible hypoglycemia. Patient states she was driving the car which he felt kind of tired she thought her sugar may be getting low. She did not have a device wanted to check her sugar she went to her daughter's also has food so she did not immediately feel better so she called an hour when he came to the ED. Patient denies using any more of her insulin than she normally does. Patient states that she may have not eaten as much. When patient arrived patient sugar was 288. Patient denies any fever chills but does complain of a headache. Patient denies any neurological symptoms such as change in speech or vision or sensation. - Related Data Allergies Allergy/AdvReac Type Severity Reaction Status Date / Time No Known Allergies Allergy Verified 07/14/20 18:18 Home Meds: Home Meds Lisinopril/Hydrochlorothiazide [Lisinopril-HCTZ 10-12.5 MG] 10 - 12.5 mg PO DAILY 04/13/19 [History] metFORMIN [Glucophage XR] 1,500 tab PO DAILY 04/13/19 [History] Insulin Glargine,Hum.Rec.Anlog [Toukristian Solostar] 10 unit SQ BEDTIME 30 Days #1 insuln.pen 05/02/20 [Rx] Pen Needle, Diabetic [Pen [place]] 1 each MC DAILY 30 Days #30 dis.needle 05/02/20 [Rx] Venlafaxine HCl [Venlafaxine ER] 150 mg PO DAILY 05/02/20 [History] lamoTRIgine [Lamotrigine] 200 mg PO DAILY 05/02/20 [History] Past Medical History HEENT History: Reports: None Other HEENT History: wears glasses Cardiovascular History: Reports: Hypertension Other Cardiovascular History: REports stress test in about October of this year after being hospitalized Respiratory History: Reports: Asthma Gastrointestinal History: Reports: GERD Other Gastrointestinal History: uses OTC treatment Other 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 History: 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: Musculoskeletal History: Reports: Back Pain, Chronic Other Musculoskeletal History: Chronic low back pain, hx: fracture Left foot Neurological History: Reports: Concussion, Vertigo Other Neuro History: Headaches, hx: Vertigo 'no problem currently' Psychiatric History: Reports: Anxiety, Depression Endocrine/Metabolic History: Reports: Diabetes, Type II, Obesity/BMI 30+ Other Endocrine/Metabolic History: Hypothyroidism Hematologic History: Reports: None Immunologic History: Reports: None - Infectious Disease History Infectious Disease History: Reports: Chicken Pox - Past Surgical History Head Surgeries/Procedures: Reports: None HEENT Surgical History: Reports: None Other HEENT Surgeries/Procedures: [place] teeth Female Surgical History: Reports: Hysterectomy, Salpingo-Oophorectomy, Tubal Ligation Other Female Surgeries/Procedures: hx of bladder surgery Social & Family History - Family History Family Medical History: No Pertinent Family History Cardiac: Reports: CAD, High Cholesterol, [place] Neurological: Reports: CVA - Caffeine Use Caffeine Use: Reports: None ED ROS GENERAL - Review of Systems Review Of Systems: Comprehensive ROS is negative, except as noted in HPI. ED EXAM, GENERAL - Physical Exam Exam: See Below Free Text/Narrative:: Is a 50-year-old female who presents today for possible hypoglycemia. Patient states she was driving the car which he felt kind of tired she thought her sugar may be getting low. She did not have a device wanted to check her sugar she went to her daughter's also has food so she did not immediately feel better so she called an hour when he came to the ED. Patient denies using any more of her insulin than she normally does. Patient states that she may have not eaten as much. When patient arrived patient sugar was 288. Patient denies any fever chills but does complain of a headache. Patient denies any neurological symptoms such as change in speech or vision or sensation. Exam Limited By: No Limitations General Appearance: Alert, WD/WN Respiratory/Chest: No Respiratory Distress, Lungs Clear Cardiovascular: Normal Peripheral Pulses, Regular Rate, Rhythm GI/Abdominal: Normal Bowel Sounds, Soft, Non-Tender Extremities: Normal Inspection, Normal Range of Motion Neurological: Alert, Oriented, CN II-XII Intact, Normal Cognition Course - Vital Signs Last Recorded V/S: Last Vital Signs Temp 36.2 C 07/14/20 18:15 Pulse 96 07/14/20 18:15 Resp 20 07/14/20 18:15 BP 127/75 07/14/20 18:15 Pulse Ox 99 01/14/21 18:15 - Orders/Labs/Meds Orders: Active Orders 24 hr Category Date Time Status Blood Glucose Check, Bedside [RC] ONETIME Care 07/14/20 20:04 Active Labs: Laboratory Tests 07/14/20 07/14/20 07/14/20 Range/Units 18:13 18:13 18:40 WBC 5.64 (4.0-11.0) K/uL RBC 4.65 (4.30-5.90) M/uL Hgb 13.9 (12.0-16.0) g/dL Hct 41.3 (36.0-46.0) % MCV 88.8 (80.0-98.0) fL MCH 29.9 (27.0-32.0) pg MCHC 33.7 (31.0-37.0) g/dL RDW Std Deviation 43.6 (28.0-62.0) fl RDW Coeff of Mamta 14 (11.0-15.0) % Plt Count 216 (150-400) K/uL MPV 9.90 (7.40-12.00) fL Neut % (Auto) 50.2 (48.0-80.0) % Lymph % (Auto) 38.5 (16.0-40.0) % [place] % (Auto) 8.5 (0.0-15.0) % Eos % (Auto) 2.1 (0.0-7.0) % Baso % (Auto) 0.7 (0.0-1.5) % Neut # (Auto) 2.8 (1.4-5.7) K/uL Lymph # (Auto) 2.2 (0.6-2.4) K/uL [place] # (Auto) 0.5 (0.0-0.8) K/uL Eos # (Auto) 0.1 (0.0-0.7) K/uL Baso # (Auto) 0.0 (0.0-0.1) K/uL Nucleated RBC % 0.0 /100WBC Nucleated RBCs # 0 K/uL Sodium 136 (136-145) mmol/L Potassium 4.1 (3.5-5.1) mmol/L Chloride 101 (98-107) mmol/L Carbon Dioxide 25.3 (21.0-32.0) mmol/L BUN 14 (7.0-18.0) mg/dL Creatinine 0.8 (0.6-1.0) mg/dL Est Cr Clr Drug Dosing 86.94 mL/min Estimated GFR (MDRD) > 60.0 ml/min Glucose 307 H (74-106) mg/dL POC Glucose (60-110) mg/dL Calcium 9.1 (8.5-10.1) mg/dL Phosphorus 3.2 (2.6-4.7) mg/dL Magnesium 1.7 L (1.8-2.4) mg/dL Total Bilirubin 0.3 (0.2-1.0) mg/dL AST 25 (15-37) IU/L ALT 35 (14-63) IU/L Alkaline Phosphatase 94 (46-116) U/L Total Protein 6.8 (6.4-8.2) g/dL Albumin 3.2 L (3.4-5.0) g/dL Globulin 3.6 (2.6-4.0) g/dL Albumin/Globulin Ratio 0.9 (0.9-1.6) Urine Color YELLOW Urine Appearance CLEAR Urine pH 6.5 (5.0-8.0) Ur Specific [place] 1.010 (1.001-1.035) Urine Protein NEGATIVE (NEGATIVE) mg/dL Urine Glucose (UA) 100 H (NEGATIVE) mg/dL Urine Ketones NEGATIVE (NEGATIVE) mg/dL Urine Occult Blood NEGATIVE (NEGATIVE) Urine Nitrite NEGATIVE (NEGATIVE) Urine Bilirubin NEGATIVE (NEGATIVE) Urine Urobilinogen 0.2 (<2.0) EU/dL Ur Leukocyte Esterase TRACE H (NEGATIVE) Urine RBC 0-3 (0-2/HPF) Urine WBC 0-2 (0-5/HPF) Ur Epithelial Cells RARE (NONE-FEW) Urine Bacteria RARE (NEGATIVE) Ethyl Alcohol < 3.0 mg/dL 07/14/20 Range/Units 20:07 WBC (4.0-11.0) K/uL RBC (4.30-5.90) M/uL Hgb (12.0-16.0) g/dL Hct (36.0-46.0) % MCV (80.0-98.0) fL MCH (27.0-32.0) pg MCHC (31.0-37.0) g/dL RDW Std Deviation (28.0-62.0) fl RDW Coeff of Mamta (11.0-15.0) % Plt Count (150-400) K/uL MPV (7.40-12.00) fL Neut % (Auto) (48.0-80.0) % Lymph % (Auto) (16.0-40.0) % [place] % (Auto) (0.0-15.0) % Eos % (Auto) (0.0-7.0) % Baso % (Auto) (0.0-1.5) % Neut # (Auto) (1.4-5.7) K/uL Lymph # (Auto) (0.6-2.4) K/uL [place] # (Auto) (0.0-0.8) K/uL Eos # (Auto) (0.0-0.7) K/uL Baso # (Auto) (0.0-0.1) K/uL Nucleated RBC % /100WBC Nucleated RBCs # K/uL Sodium (136-145) mmol/L Potassium (3.5-5.1) mmol/L Chloride (98-107) mmol/L Carbon Dioxide (21.0-32.0) mmol/L BUN (7.0-18.0) mg/dL Creatinine (0.6-1.0) mg/dL Est Cr Clr Drug Dosing mL/min Estimated GFR (MDRD) ml/min Glucose (74-106) mg/dL POC Glucose 288 H (60-110) mg/dL Calcium (8.5-10.1) mg/dL Phosphorus (2.6-4.7) mg/dL Magnesium (1.8-2.4) mg/dL Total Bilirubin (0.2-1.0) mg/dL AST (15-37) IU/L ALT (14-63) IU/L Alkaline Phosphatase (46-116) U/L Total Protein (6.4-8.2) g/dL Albumin (3.4-5.0) g/dL Globulin (2.6-4.0) g/dL Albumin/Globulin Ratio (0.9-1.6) Urine Color Urine Appearance Urine pH (5.0-8.0) Ur Specific [place] (1.001-1.035) Urine Protein (NEGATIVE) mg/dL Urine Glucose (UA) (NEGATIVE) mg/dL Urine Ketones (NEGATIVE) mg/dL Urine Occult Blood (NEGATIVE) Urine Nitrite (NEGATIVE) Urine Bilirubin (NEGATIVE) Urine Urobilinogen (<2.0) EU/dL Ur Leukocyte Esterase (NEGATIVE) Urine RBC (0-2/HPF) Urine WBC (0-5/HPF) Ur Epithelial Cells (NONE-FEW) Urine Bacteria (NEGATIVE) Ethyl Alcohol mg/dL Departure - Departure Time of Disposition: 20:19 Disposition: Home, Self-Care 01 Condition: Good Clinical Impression: Hypoglycemia, Hyperglycemia - Discharge Information *PRESCRIPTION DRUG MONITORING PROGRAM REVIEWED*: Not Applicable *COPY OF PRESCRIPTION DRUG MONITORING REPORT IN PATIENT MIREYA: Not Applicable Referrals: PCP,None [Primary Care Provider] - Forms: ED Department Discharge Additional Instructions: Your sugar went to go home. The Somogyi effect is when your glucose goes up in response to low glucose because you spoke glycogen from your liver theoretically. Do not administer insulin based on your trending down today but check when you get home and then use your sliding scale. [facility] - Primary Care [address] [place] [address] [place] [address] The following information is given to patients seen in the emergency department who are being discharged to home. This information is to outline your options for follow-up care. We provide all patients seen in our emergency department with a follow-up referral. The need for follow-up, as well as the timing and circumstances, are variable depending upon the specifics of your emergency department visit. If you don't have a primary care physician on staff, we will provide you with a referral. We always advise you to contact your personal physician following an emergency department visit to inform them of the circumstance of the visit and for follow-up with them and/or the need for any referrals to a consulting specialist. The emergency department will also refer you to a specialist when appropriate. This referral assures that you have the opportunity for follow-up care with a specialist. All of these measure are taken in an effort to provide you with optimal care, which includes your follow-up. Under all circumstances we always encourage you to contact your private physician who remains a resource for coordinating your care. When calling for follow-up care, please make the office aware that this follow-up is from your recent emergency room visit. If for any reason you are refused follow-up, please contact the [facility] Emergency Department at and asked to speak to the emergency department charge nurse. Sepsis Event Note (ED) - Evaluation Sepsis Screening Result: No Definite Risk - Focused Exam Vital Signs: Vital Signs Temp Pulse Resp BP Pulse Ox 07/14/20 18:15 36.2 C 96 20 127/75 99 - My Orders Last 24 Hours: My Active Orders 07/14/20 20:04 Blood Glucose Check, Bedside [RC] ONETIME - Assessment/Plan Last 24 Hours: My Active Orders 07/14/20 20:04 Blood Glucose Check, Bedside [RC] ONETIME
[2020-07-14 21:19] VITALS: BP 124/70; PULSE 90
== END 2020-07-14 20:48 | disposition home or self-care (01) ==
LOC: MW.ED 18:10
DX: E11.65 Type 2 diabetes mellitus with hyperglycemia (principal); I10 Essential (primary) hypertension; J45.909 Unspecified asthma, uncomplicated; E66.9 Obesity, unspecified; Z68.38 Body mass index [BMI] 38.0-38.9, adult; Z79.4 Long term (current) use of insulin; Z79.899 Other long term (current) drug therapy
CPT/HCPCS: 36415; 70450; 70450-26; 80053; 80179; 81001; 82962; 83735; 84100; 85025; 99284-25

== ENCOUNTER 2021-05-25 12:33 | Emergency (ER) | payer MEDICAID ==
--- NOTE | 2021-05-25 12:36 | EDM.PDOC ---
ED HPI GENERAL MEDICAL PROBLEM - General Chief Complaint: General Stated Complaint: FELL HIT HEAD,HANDS, AND KNEES Time Seen by Provider: 05/25/21 12:34 Source of Information: Reports: Patient History Limitations: Reports: No Limitations - History of Present Illness INITIAL COMMENTS - FREE TEXT/NARRATIVE: 51-year-old female presents for fall. Patient was walking in a parking lot when she fell forward hitting the front of her head and scraping her knees and hands. She denies loss of consciousness. She tripped leading to fall. Denies any symptoms currently. Ambulatory. No N/V. Head Pain Score (Numeric/FACES): 3 - Related Data Allergies Allergy/AdvReac Type Severity Reaction Status Date / Time No Known Allergies Allergy Verified 05/25/21 12:45 Home Meds: Home Meds Lisinopril/Hydrochlorothiazide [Lisinopril-HCTZ 10-12.5 MG] 10 - 12.5 mg PO DAILY 04/13/19 [History] Insulin Glargine,Hum.Rec.Anlog [Toujeo Solostar] 10 unit SQ BEDTIME 30 Days #1 insuln.pen 05/02/20 [Rx] Pen Needle, Diabetic [Pen [place]] 1 each MC DAILY 30 Days #30 dis.needle 05/02/20 [Rx] Venlafaxine HCl [Venlafaxine ER] 150 mg PO DAILY 05/02/20 [History] lamoTRIgine [Lamotrigine] 200 mg PO DAILY 05/02/20 [History] Insulin Aspart [Novolog Flexpen] 100 unit SQ DAILY 05/25/21 [History] Past Medical History HEENT History: Reports: None Other HEENT History: wears glasses Cardiovascular History: Reports: Hypertension Other Cardiovascular History: REports stress test in about October of this year after being hospitalized Respiratory History: Reports: Asthma Gastrointestinal History: Reports: GERD Other Gastrointestinal History: uses OTC treatment Other 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 History: Urinary urgency 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: Musculoskeletal History: Reports: Back Pain, Chronic Other Musculoskeletal History: Chronic low back pain, hx: fracture Left foot Neurological History: Reports: Concussion, Vertigo Other Neuro History: Headaches, hx: Vertigo 'no problem currently' Psychiatric History: Reports: Anxiety, Depression Endocrine/Metabolic History: Reports: Diabetes, Type II, Obesity/BMI 30+ Other Endocrine/Metabolic History: Hypothyroidism Hematologic History: Reports: None Immunologic History: Reports: None - Infectious Disease History Infectious Disease History: Reports: Chicken Pox - Past Surgical History Head Surgeries/Procedures: Reports: None HEENT Surgical History: Reports: None Other HEENT Surgeries/Procedures: Alexander teeth Female Surgical History: Reports: Hysterectomy, Salpingo-Oophorectomy, Tubal Ligation Other Female Surgeries/Procedures: hx of bladder surgery Social & Family History - Family History Family Medical History: No Pertinent Family History Cardiac: Reports: CAD, High Cholesterol, [place] Neurological: Reports: CVA - Caffeine Use Caffeine Use: Reports: None ED ROS GENERAL - Review of Systems Review Of Systems: Comprehensive ROS is negative, except as noted in HPI. ED EXAM, GENERAL - Physical Exam Exam: See Below Exam Limited By: No Limitations General Appearance: Alert, WD/WN, No Apparent Distress Eye Exam: Bilateral Eye: EOMI, PERRL Ears: Hearing Grossly Normal Throat/Mouth: Normal Voice, No Airway Compromise Head: Normocephalic, Other (1-cm superficial abrasion L forehead) Neck: Normal Inspection, Supple, Non-Tender Respiratory/Chest: No Respiratory Distress, Lungs Clear, Normal Breath Sounds, No Accessory Muscle Use Cardiovascular: Normal Peripheral Pulses, Regular Rate, Rhythm Extremities: Normal Inspection, Normal Range of Motion, Non-Tender Neurological: Alert, CN II-XII Intact, Normal Cognition, Normal Gait, Normal Reflexes, No Motor/Sensory Deficits Psychiatric: Normal Affect, Normal Mood Skin Exam: Warm, Dry, Intact, Normal Color Course - Vital Signs Last Recorded V/S: Last Vital Signs Temp 98.1 F 05/25/21 12:45 Pulse 83 05/25/21 12:45 Resp 16 05/25/21 12:45 BP 141/79 H 05/25/21 12:45 Pulse Ox 97 05/25/21 12:45 Departure - Departure Time of Disposition: 12:55 Disposition: Home, Self-Care 01 Condition: Good Clinical Impression: Closed head injury Qualifiers: Encounter type: initial encounter Qualified Code(s): S09.90XA - Unspecified injury of head, initial encounter - Discharge Information Instructions: Head Injury, Adult Referrals: Nitesh Ward MD [Primary Care Provider] - Forms: ED Department Discharge Additional Instructions: The following information is given to patients seen in the emergency department who are being discharged to home. This information is to outline your options for follow-up care. We provide all patients seen in our emergency department with a follow-up referral. The need for follow-up, as well as the timing and circumstances, are variable depending upon the specifics of your emergency department visit. If you don't have a primary care physician on staff, we will provide you with a referral. We always advise you to contact your personal physician following an emergency department visit to inform them of the circumstance of the visit and for follow-up with them and/or the need for any referrals to a consulting specialist. The emergency department will also refer you to a specialist when appropriate. This referral assures that you have the opportunity for follow-up care with a specialist. All of these measure are taken in an effort to provide you with optimal care, which includes your follow-up. Under all circumstances we always encourage you to contact your private physician who remains a resource for coordinating your care. When calling for follow-up care, please make the office aware that this follow-up is from your recent emergency room visit. If for any reason you are refused follow-up, please contact the [facility] at and asked to speak to the emergency department charge nurse. Please follow up with your primary care physician. If you do not have a primary care physician, see below: [facility] [address] [place] [id number] [facility] [address] [place] [address] [facility] [address] [place] [id number] Sepsis Event Note (ED) - Focused Exam Vital Signs: Vital Signs Temp Pulse Resp BP Pulse Ox 05/25/21 12:45 98.1 F 83 16 141/79 H 97
[2021-05-25 13:03] VITALS: BP 134/74; PULSE 77
== END 2021-05-25 13:04 | disposition home or self-care (01) ==
LOC: MW.ED 12:33
DX: S00.81XA Abrasion of other part of head, initial encounter (principal); I10 Essential (primary) hypertension; K21.9 Gastro-esophageal reflux disease without esophagitis; E11.9 Type 2 diabetes mellitus without complications; E66.9 Obesity, unspecified; E03.9 Hypothyroidism, unspecified; Z68.38 Body mass index [BMI] 38.0-38.9, adult; Z79.899 Other long term (current) drug therapy; W18.09XA Striking against other object with subsequent fall, initial encounter
CPT/HCPCS: 99283

== ENCOUNTER 2022-02-18 21:19 | Emergency (ER) | payer MEDICAID | END 2022-02-18 22:37 | disposition left against medical advice (07) | LOC: MW.ED 21:19 | DX: Z53.21 Procedure and treatment not carried out due to patient leaving prior to being seen by health care provider (principal) ==

== ENCOUNTER 2022-04-16 00:51 | Emergency (ER) | payer MEDICAID, OTHER ==
[2022-04-16] MEDS ORDERED: Ciprofloxacin 500 MG Tab PO ONE (01:39)
[2022-04-16] MEDS ORDERED: Sulfamethoxazole/Trimethoprim 800-160 MG Tab PO ONE (01:39)
[2022-04-16 02:11] VITALS: BP 131/72; PULSE 88
== END 2022-04-16 02:11 | disposition home or self-care (01) ==
LOC: MW.ED 00:51
DX: L03.116 Cellulitis of left lower limb (principal); I10 Essential (primary) hypertension; J45.909 Unspecified asthma, uncomplicated; E11.9 Type 2 diabetes mellitus without complications; E66.9 Obesity, unspecified; Z68.32 Body mass index [BMI] 32.0-32.9, adult; Z79.4 Long term (current) use of insulin; Z79.899 Other long term (current) drug therapy
CPT/HCPCS: 99283; A9270; 99282

== ENCOUNTER 2022-06-02 11:53 | Emergency (ER) | payer MEDICAID, OTHER ==
[2022-06-02 12:23] VITALS: BP 139/84; PULSE 87
[2022-06-02] MEDS ORDERED: Bupivacaine 0.25% 10 ML SDV INJECT ONE (12:32)
[2022-06-02] MEDS ORDERED: Lidocaine 1% 5 ML VIAL INJECT ONE (12:32)
[2022-06-02] MEDS ORDERED: Sodium Chloride 0.9% 2.5 ML Syringe FLUSH PRN (12:33)
[2022-06-02] MEDS ORDERED: Sodium Chloride 0.9% 10 ML Syringe FLUSH PRN (12:33)
[2022-06-02 13:17] LABS: CARBON DIOXIDE,CO2 28.7 mmol/L (21.0-32.0); POTASSIUM,K 3.8 mmol/L (3.5-5.1)
== END 2022-06-02 13:58 | disposition home or self-care (01) ==
LOC: MW.ED 11:53
DX: L02.211 Cutaneous abscess of abdominal wall (principal); E11.65 Type 2 diabetes mellitus with hyperglycemia; I10 Essential (primary) hypertension; E66.9 Obesity, unspecified; Z79.4 Long term (current) use of insulin; Z79.899 Other long term (current) drug therapy; Z68.31 Body mass index [BMI] 31.0-31.9, adult
CPT/HCPCS: 10060; 36415; 80053; 83735; 85025; 87070; 87205; 99283; J3490; 87077; 87186

== ENCOUNTER 2022-09-24 17:30 | Emergency (ER) | payer OTHER, MEDICAID ==
[2022-09-24] MEDS ORDERED: Sodium Chloride 0.9% 10 ML Syringe FLUSH PRN (17:54)
[2022-09-24] MEDS ORDERED: Sodium Chloride 0.9% 1,000 ML IV STA ×2 (17:54→19:12)
[2022-09-24] MEDS ORDERED: Sodium Chloride 0.9% 2.5 ML Syringe FLUSH PRN (17:54)
[2022-09-24 18:17] LABS: HEMOGLOBIN A1C 11.5 %
[2022-09-24 18:26] LABS: POTASSIUM,K 4.2 mmol/L (3.5-5.1)
[2022-09-24] MEDS ORDERED: 50% Dextrose in Water 50 ML Syringe IVPUSH PRN (19:13)
[2022-09-24] MEDS ORDERED: Insulin Regular, Human 100 Units/ML 10 ML Vial IVPUSH STA (19:13)
[2022-09-24] MEDS ORDERED: Glucagon,Human Recombinant 1 MG Vial IM PRN (19:13)
[2022-09-24 22:03] LABS: CARBON DIOXIDE,CO2 28.6 mmol/L (21.0-32.0); POTASSIUM,K 3.7 mmol/L (3.5-5.1)
[2022-09-24 22:33] VITALS: BP 153/81; PULSE 78
== END 2022-09-24 22:32 | disposition home or self-care (01) ==
LOC: MW.ED 17:30
DX: R07.9 Chest pain, unspecified (principal); E11.65 Type 2 diabetes mellitus with hyperglycemia; R74.8 Abnormal levels of other serum enzymes; I10 Essential (primary) hypertension; E66.9 Obesity, unspecified; Z68.34 Body mass index [BMI] 34.0-34.9, adult; Z79.4 Long term (current) use of insulin; Z91.198 Patient's noncompliance with other medical treatment and regimen for other reason
CPT/HCPCS: 36415; 71045; 80048; 80053; 81003; 82803; 82947; 83036; 83735; 83880; 84484; 85025; 93005; 96360; 99285; J1815; J3490; J7030; 93010

== ENCOUNTER 2022-10-23 19:32 | Emergency (ER) | payer OTHER, MEDICAID ==
[2022-10-23] MEDS ORDERED: Ketorolac 60 MG/2 ML SDV IM ONE (20:19)
[2022-10-23 21:36] VITALS: BP 140/78; PULSE 82
== END 2022-10-23 21:35 | disposition home or self-care (01) ==
LOC: MW.ED 19:32
DX: M25.541 Pain in joints of right hand (principal); I10 Essential (primary) hypertension; E11.9 Type 2 diabetes mellitus without complications; E03.9 Hypothyroidism, unspecified; E66.9 Obesity, unspecified; Z68.35 Body mass index [BMI] 35.0-35.9, adult; Z79.4 Long term (current) use of insulin; Z79.899 Other long term (current) drug therapy
CPT/HCPCS: 73130; 96372; 99283; J1885

== ENCOUNTER 2023-03-19 11:58 | Emergency (ER) | payer MEDICAID ==
[2023-03-19] MEDS ORDERED: Sodium Chloride 0.9% 1,000 ML IV ONE ×3 (12:00→13:07)
[2023-03-19] MEDS ORDERED: Ondansetron 4 MG/2 ML SDV IVPUSH ONE (12:00)
[2023-03-19 12:14] LABS: BASE EXCESS VENOUS -1.2 (-2.0-3.0); PH,VENOUS 7.36 (7.31-7.41)
[2023-03-19 12:15] LABS: BASOPHILS PERCENT AUTO 0.4 % (0.0-1.5); EOSINOPHILS ABSOLUTE AUTO 0.1 K/uL (0.0-0.7); EOSINOPHILS PERCENT AUTO 2.3 % (0.0-7.0); HEMATOCRIT 41.7 % (36.0-46.0); HEMOGLOBIN 13.8 g/dL (12.0-16.0); LYMPHOCYTES ABSOLUTE AUTO 1.8 K/uL (0.6-2.4); LYMPHOCYTES PERCENT AUTO 37.4 % (16.0-40.0); MEAN CORPUSCULAR HEMOGLOBIN 28.9 pg (27.0-32.0); MEAN CORPUSCULAR HGB CONC 33.1 g/dL (31.0-37.0); MEAN CORPUSCULAR VOLUME 87.2 fL (80.0-98.0); MONOCYTES ABSOLUTE AUTO 0.3 K/uL (0.0-0.8); MONOCYTES PERCENT AUTO 5.5 % (0.0-15.0); NEUTROPHILS ABSOLUTE AUTO 2.6 K/uL (1.4-5.7); NEUTROPHILS PERCENT AUTO 54.4 % (48.0-80.0); NRBC ABSOLUTE 0 K/uL; PLATELET COUNT,PLT 193 K/uL (150-400); RED BLOOD CELL COUNT 4.78 M/uL (4.30-5.90); WHITE BLOOD CELL COUNT,WBC 4.73 K/uL (4.0-11.0)
[2023-03-19 12:56] LABS: LACTIC ACID 3.4 mmol/L (0.4-2.0)
[2023-03-19 13:01] LABS: A/G RATIO 0.8 (0.9-1.6); BILIRUBIN TOTAL 0.4 mg/dL (0.2-1.0); CALCIUM 8.3 mg/dL (8.5-10.1); CARBON DIOXIDE,CO2 22.6 mmol/L (21.0-32.0); CREATININE 0.9 mg/dL (0.6-1.0); EST CRCL DRUG DOSING (CG) 75.55 mL/min; MAGNESIUM 1.8 mg/dL (1.8-2.4); POTASSIUM,K 4.3 mmol/L (3.5-5.1); PROTEIN TOTAL,TP 6.6 g/dL (6.4-8.2)
[2023-03-19] MEDS ORDERED: Insulin Regular, Human 100 Units/ML 10 ML Vial IVPUSH ONE (13:07)
[2023-03-19] MEDS ORDERED: 50% Dextrose in Water 50 ML Syringe IVPUSH PRN (13:07)
[2023-03-19] MEDS ORDERED: Glucagon,Human Recombinant 1 MG Vial IM PRN (13:07)
[2023-03-19] MEDS ORDERED: Potassium Chloride 20 MEQ Tab.ER PO ONE (13:07)
[2023-03-19 13:52] LABS: APPEARANCE,URINE CLEAR; BILIRUBIN,URINE NEGATIVE (NEGATIVE); COLOR,URINE YELLOW; GLUCOSE,URINE >=1000 mg/dL (NEGATIVE); KETONES,URINE NEGATIVE (NEGATIVE); LEUKOCYTE ESTERASE,URINE NEGATIVE (NEGATIVE); NITRITE,URINE NEGATIVE (NEGATIVE); OCCULT BLOOD,URINE NEGATIVE (NEGATIVE); PROTEIN,URINE NEGATIVE (NEGATIVE); UROBILINOGEN,URINE 0.2 EU/dL (<2.0)
[2023-03-19 14:43] VITALS: BP 149/86; PULSE 76
== END 2023-03-19 15:10 | disposition home or self-care (01) ==
LOC: MW.ED 11:58
DX: E11.65 Type 2 diabetes mellitus with hyperglycemia (principal); I10 Essential (primary) hypertension; E66.9 Obesity, unspecified; E03.9 Hypothyroidism, unspecified; Z79.4 Long term (current) use of insulin; Z79.899 Other long term (current) drug therapy; Z20.822 Contact with and (suspected) exposure to COVID-19
CPT/HCPCS: 36415; 71045; 80053; 81003; 82009; 82803; 82947; 83605; 83690; 83735; 84484; 85025; 87635; 93005; 96361; 96374; 99285; A9270; J2405; J7030; 93010; 99284; J1815-GY; U0002